=== PATIENT | female | born 1940 | race Caucasian/White ===

== ENCOUNTER → 2017-06-20 | Outpatient (CLI) | payer BC ==
[~2017-06-20] MED LIST: DIFL0.0519; ESTR0.5T3 PO; FAMO20TA11 PO; HYDR-4383 PO; LSN/10125 PO; MULT-506 PO; OFLO0.3S OP; PANT40TA PO; SIMV40TA2 PO
--- NOTE | 2017-06-20 15:51 | MAMMOGRAPHY REPORT ---
BILATERAL DIGITAL SCREENING MAMMOGRAM WITH CAD: 06/20/2017 CLINICAL HISTORY: Routine screening. Patient has no complaints. TECHNIQUE: Bilateral CC and MLO views were obtained. Current study was also evaluated with a Comput er Aided Detection (CAD) system. COMPARISON: Comparison is made to exams dated: 06/17/2016 mammogram, 06/15/2015 mammogram, 06/12/2014 m ammogram, 06/11/2013 mammogram, 05/31/2012 mammogram, and 05/31/2011 mammogram - [facility]. BREAST COMPOSITION: There are scattered areas of fibroglandular density in both breasts. FINDINGS: A linear scar marker overlies the right upper outer quadrant. No suspicious mass, architec tural distortion or cluster of suspicious microcalcifications is seen. IMPRESSION: ACR BI-RADS CATEGORY 1: NEGATIVE There is no mammographic evidence of malignancy. A 1 year screening mammogram is recommended. The pa tient will receive written notification of the results. Approximately 10% of breast cancers are not detected with mammography. A negative mammographic report should not delay biopsy if a clinically suggestive mass is present. Nanci Jerome M.D. ay/:06/20/2017 13:26:24 Cost Accounting Clerk: Petty Zapata, [facility] letter sent: Normal 1/2 BI-RADS Code: ACR BI-RADS Category 1: Negative
== END | disposition home or self-care (01) ==
LOC: C.MAMM 12:19
PROVIDERS: ATTEND Internal Medicine
DX: Z12.31 Encounter for screening mammogram for malignant neoplasm of breast (principal)

== ENCOUNTER → 2017-12-19 | Outpatient (CLI) | payer BC ==
--- NOTE | 2017-12-19 08:28 | DIAGNOSTIC IMAGING REPORT ---
CT SCAN OF THE CHEST WITHOUT IV CONTRAST CLINICAL HISTORY: Follow-up pulmonary nodule. COMPARISON STUDY: Chest CT scans dated 11/17/2016 and 06/08/2015. TECHNIQUE: CT scan of the thorax was performed from the thoracic inlet to the upper abdomen. Images are reviewed in the axial, sagittal, and coronal planes. IV contrast was not administered for this examination as per the referring clinician. A dose lowering technique was utilized adhering to the principles of ALARA. CT DOSE: 291.29 mGy.cm FINDINGS: Thyroid: Imaged portions of the thyroid gland are normal in size and attenuation. Thoracic aorta: There is atherosclerotic calcification of the thoracic aorta, which is normal in caliber and demonstrates standard 3-vessel arch anatomy. Heart: The heart is mildly enlarged and there is trace pericardial effusion. Lungs and pleural spaces: Mild apical scarring is identified. There is no airspace consolidation or pleural effusion. The trachea and central airways are clear. Scattered calcified granulomas are identified. There is an 8 mm perifissural nodule in the right upper lobe along the minor fissure seen on image #160. This is unchanged dating back to 06/08/2015 and of doubtful significance. A 4 mm left upper lobe nodule is seen on image #129. Mediastinum: There are scattered subcentimeter mediastinal lymph nodes. These are not pathologically enlarged by size criteria. Mildred: Not well assessed without IV contrast. Axillae: There is no axillary lymphadenopathy. Upper abdomen: There is a tiny hiatal hernia. Partially visualized upper abdominal viscera is otherwise within normal limits. Skeletal structures: The skeletal structures are osteopenic. No lytic or blastic bony lesions are seen. IMPRESSION: 1. There is no airspace consolidation or pleural effusion. 2. There is an 8 mm perifissural nodule in the right upper lobe. This is unchanged dating back to 2014 and of doubtful significance. 3. There is a new 4 mm left upper lobe pulmonary nodule. This is pathologically indeterminant and may be on an inflammatory basis. A 3-6 month follow-up examination is recommended for reassessment. 4. Mild cardiac enlargement. Electronically signed by: Karan Gil M.D. 12/19/2017 8:26 AM Dictated Date/Time: 12/19/2017 8:19 AM
== END | disposition home or self-care (01) ==
LOC: C.CTS 08:04
PROVIDERS: ATTEND Internal Medicine
DX: R91.1 Solitary pulmonary nodule (principal)

== ENCOUNTER → 2017-12-19 | Outpatient (CLI) | payer BC ==
[2017-12-19 11:01] LABS: BASO % 0.7 %; BASO ABS # 0.03 K/uL (0-0.2); EOS % 3.2 %; EOS ABS # 0.14 K/uL (0-0.5); HEMATOCRIT 40.1 % (37-47); HEMOGLOBIN 13.2 g/dL (12.0-16.0); LYMPH % 25.5 %; LYMPH ABS # 1.12 K/uL (1.2-3.4); MEAN CELL VOLUME 94.4 fL (80-100); MEAN CORPUSCULAR HEMOGLOBIN 31.1 pg (25-34); MEAN CORPUSCULAR HGB CONC 32.9 g/dl (32-36); MEAN PLATELET VOLUME 9.4 fL (7.4-10.4); MONO % 9.8 %; MONO ABS # 0.43 K/uL (0.11-0.59); NEUT % 60.8 %; NEUT ABS # 2.68 K/uL (1.4-6.5); PLATELET COUNT 225 K/uL (130-400); RED CELL DISTRIBUTION WIDTH CV 13.1 % (11.5-14.5); RED CELL DISTRIBUTION WIDTH SD 44.9 fL (36.4-46.3)
[2017-12-19 11:27] LABS: ALBUMIN 3.8 gm/dl (3.4-5.0); ALT/SGPT 22 U/L (12-78); AST/SGOT 19 U/L (15-37); BLOOD UREA NITROGEN 23 mg/dl (7-18); CALCIUM 9.6 mg/dl (8.5-10.1); CARBON DIOXIDE 32 mmol/L (21-32); CHOLESTEROL 189 mg/dl (0-200); CREATININE 0.82 mg/dl (0.60-1.20); GLUCOSE 97 mg/dl (70-99); POTASSIUM 3.4 mmol/L (3.5-5.1); SODIUM 138 mmol/L (136-145)
[2017-12-19 11:30] LABS: ALKALINE PHOSPHATASE 64 U/L (45-117); LDL CHOLESTEROL CALCULATED 96 mg/dl; TOTAL PROTEIN 7.3 gm/dl (6.4-8.2)
== END | disposition home or self-care (01) ==
LOC: C.LABBC 08:47
PROVIDERS: ATTEND Internal Medicine
DX: K21.0 Gastro-esophageal reflux disease with esophagitis (principal); K55.9 Vascular disorder of intestine, unspecified

== ENCOUNTER → 2018-06-20 | Outpatient (CLI) | payer BC ==
--- NOTE | 2018-06-20 12:10 | DIAGNOSTIC IMAGING REPORT ---
(CHEST) THORAX WITHOUT CT DOSE: HISTORY: Nodule FOLLOW-UP STUDY, NO NEW COMPLAINTS TECHNIQUE: Multiaxial CT images of the chest were performed without contrast. A dose lowering technique was utilized adhering to the principles of ALARA. COMPARISON: 12/19/2017 FINDINGS: Unchanging 8 mm right midlung nodule. A 4 mm left upper lobe nodule previously described has resolved. There are no new or progressive findings. Mediastinal hilar regions show no significant adenopathy. IMPRESSION: 1. Improved exam. 2. Stable 8 mm nodule right upper lobe. 3. Improved/resolved 4 mm nodule left hemithorax. 4. No further follow-up is recommended. The above report was generated using voice recognition software. It may contain grammatical, syntax or spelling errors. Electronically signed by: Zackary Narayanan M.D. 06/20/2018 12:09 PM Dictated Date/Time: 06/20/2018 12:05 PM
== END | disposition home or self-care (01) ==
LOC: C.CTS 10:36
PROVIDERS: ATTEND Internal Medicine
DX: R91.1 Solitary pulmonary nodule (principal)

== ENCOUNTER → 2018-06-21 | Outpatient (CLI) | payer BC ==
--- NOTE | 2018-06-21 16:01 | MAMMOGRAPHY REPORT ---
BILATERAL DIGITAL SCREENING MAMMOGRAM TOMOSYNTHESIS WITH CAD: 06/21/2018 TECHNIQUE: The study was acquired using full field digital technology and interpreted from soft copy. Breast tomosynthesis in addition to standard 2D mammography was performed. Current study was also ev aluated with a Computer Aided Detection (CAD) system. COMPARISON: Comparison is made to exams dated: 06/17/2016 mammogram, 06/15/2015 mammogram, 06/12/2014 m ammogram, 06/11/2013 mammogram, 05/31/2012 mammogram, and 06/20/2017 mammogram - [facility]ter. BREAST COMPOSITION: There are scattered areas of fibroglandular density in both breasts. FINDINGS: No suspicious masses, calcifications, or areas of architectural distortion are noted in either breast . There has been no significant interval change compared to prior exams. A linear scar marker denote s a scar on the right upper outer breast. IMPRESSION: ACR BI-RADS CATEGORY 2: BENIGN There is no mammographic evidence of malignancy. A 1 year screening mammogram is recommended.( 019) The patient will receive written notification of the results. Some breast cancers are not detected with mammography. A negative mammographic report should not zachery y biopsy if a clinically suggestive mass is present. Mecca Arellano M.D. ah/:06/21/2018 12:40:18 Academic Advising Director: RT Blarie(R)(M), [facility] letter sent: Normal 1/2 BI-RADS Code: ACR BI-RADS Category 2: Benign
== END | disposition home or self-care (01) ==
LOC: C.MAMM 11:51
PROVIDERS: ATTEND Internal Medicine
DX: Z12.31 Encounter for screening mammogram for malignant neoplasm of breast (principal)

== ENCOUNTER 2022-10-27 14:29 | Inpatient (IN) ==
[2022-10-27 17:31] LABS: Basophils # (auto) 0.06 K/uL (0-0.2); Basophils % (auto) 0.4 %; Eosinophils % (auto) 0.7 %; Hematocrit (blood only) 39.1 % (34.1-44.9); Hemoglobin 12.9 g/dl (12.0-16.0); Immature Granulocytes # (auto) 0.09 K/uL (0.00-0.02); Immature Granulocytes % (auto) 0.7 %; Lymphocytes % (auto) 11.2 %; Mean Corpuscular Hemoglobin 31.5 pg (25.0-34.0); Mean Corpuscular Volume 95.6 fL (80.0-100.0); Mean Platelet Volume 9.2 fL (9.4-12.3); Monocytes # (auto) 0.85 K/uL (0.24-0.82); Monocytes % (auto) 6.4 %; Neutrophils # (auto) 10.78 K/uL (1.4-6.5); Neutrophils % (auto) 80.6 %; Platelet Count 263 K/uL (130-400); RDW Coefficient of Variation 13.1 % (11.5-14.5); RDW Standard Deviation 45.9 fL (36.4-46.3); Red Blood Count 4.09 M/uL (3.93-5.22); White Blood Count 13.38 K/ul (4.8-10.8)
[2022-10-27 17:32] LABS: Albumin Globulin Ratio 1.1 (0.9-2); Albumin Level 4.1 gm/dl (3.4-5.0); BUN Creatinine Ratio 20.9 (10-20); Bilirubin,Total 0.8 mg/dl (0.2-1.0); Calcium 9.3 mg/dl (8.5-10.1); Creatinine Clr Calc Pharmacy 52.4 ml/min; Est GFR (African American) 72.9 ml/min; Est GFR (Non-African American) 62.9 ml/min; Globulin 3.7 gm/dl (2.5-4.0); Potassium 4.1 mmol/L (3.5-5.1); Total Protein 7.8 gm/dl (6.0-8.3)
[2022-10-27] MEDS ORDERED: PIPERACILLIN/TAZOBACTAM 4.5 GM/120 ML BAG IV ONE (18:59)
--- NOTE | 2022-10-27 19:02 | Emergency Department Note ---
Impression & Plan Cellulitis of gluteal region ED Provider Note NAME: BARBARA ANGELA AGE: 82 SEX: F : 1940 ARRIVES VIA: Walk-In INFORMANT: Patient, ED PROVIDER(S): Tyler Lugo DO CHIEF COMPLAINT: Gluteal abscess HPI: The patient is an 82-year-old female who presented to the emergency department with swelling and tenderness on her left gluteus. She states that this began over the last few days. She went to see her family doctor. She was started on an antibiotic. She was told to come to the ER today. The patient denies having any vomiting. She does state that she had a subjective fever. She denies having any abdominal pain. She denies having any rectal bleeding which she states she did notice some blood from the swelling area over the last few days. The patient has never had similar symptoms in the past. ROS: See above HPI for pertinent positives & negatives. A total of 10 systems reviewed and were otherwise negative. PAST MEDICAL HISTORY: See Below PAST SURGICAL HISTORY: See Below FAMILY HISTORY: See Below SOCIAL HISTORY: See Below HOME MEDICATIONS: See Below ALLERGIES: See Below VITALS: See Below PHYSICAL EXAMINATION: GENERAL: Patient is awake alert in no acute distress patient is resting comfortably and showing no signs of anxiety EYES: The conjunctivae are clear. The pupils are round and reactive. EARS, NOSE, MOUTH AND THROAT: The nose is without any evidence of any deformity. Mucous membranes are moist. Tongue is midline. NECK: The neck is nontender and supple. RESPIRATORY: Normal respiratory effort is noted there is no evidence of wheezing rhonchi or rales CARDIOVASCULAR: Regular rate and rhythm noted there no murmurs rubs or gallops normal S1 normal S2. GASTROINTESTINAL: The abdomen is soft. Abdomen is nontender. Rectal exam revealed significant swelling and induration over the left gluteus. This is very significantly tender to palpation. MUSCULOSKELETAL/EXTREMITIES: There is no evidence of gross deformity full range of motion is noted in the hips and shoulders. SKIN: There is no obvious evidence of any rash. There are no petechiae, pallor or cyanosis noted. NEUROLOGIC: Patient is awake alert and oriented x3. MEDICAL DECISION MAKING: The patient is an 82-year-old female who presented to the emergency department for an evaluation of pain on her gluteal region. The patient was diagnosed with a large induration on her gluteal cleft. The patient was started on antibiotics by her primary care physician. She returns to see her primary care physician but was referred to the emergency department for further evaluation. On my physical exam the area is very indurated I thought there could be a possibility of an abscess. Radiographic studies were obtained but there was no signs of abscess rather it appears to be a large area of cellulitis. Given the amount of pain the patient was having she was treated with IV antibiotics and IV pain medication. She was feeling somewhat improved on reevaluation but given the degree of symptoms I do feel the patient may require inpatient management. For this reason I discussed her case with the on-call [facility] hospitalist. Triage Nursing notes reviewed. Prior medical records reviewed Vital Signs: reviewed and remarkable for no significant abnormalities Differential diagnosis: Cellulitis, abscess, MRSA infection, DVT, necrotizing fasciitis, dermatitis, drug eruption, allergic reaction, as well as other pathologies. ER treatment provided: See below Diagnostics interpreted by me: ECG: none Cardiac Monitoring: An order was placed for continuous cardiac monitoring. The monitor shows a rate of 95 bpm with sinus rhythm. Laboratory studies: As stated above and show below. Imaging studies: See below Consultation(s): I discussed this case with Dr. Carney [facility]. Past Med/Surg History Medical History Cervicalgia Chronic constipation Chronic reflux esophagitis Hiatal hernia with GERD Hyperlipidemia Hypertension Insomnia Ischemic colitis no current issues Lumbar canal stenosis Mesenteric vascular insufficiency Migraine headache occasional Pain syndrome, chronic follows with pain management monthly - Dr Sánchez ([place]) Pulmonary nodule monitoring Renal artery atherosclerosis, unilateral Surgical History H/O breast surgery puncture aspiration of cyst 1958 H/O colonoscopy H/O esophagogastroduodenoscopy H/O hysterectomy with oophorectomy H/O laminectomy lumbar laminectomy History of cataract surgery Left History of tonsillectomy S/P epidural steroid injection S/P lumbar fusion x3 (extensive lumbar fusions) Family History Mother Breast cancer Father Myocardial infarction Other Hypertension No family history of adverse response to anesthesia Denies family history of Crohn's disease Colorectal cancer Ulcerative colitis Social History Smoking Status: Never smoker Second Hand Exposure: No; Hx Alcohol Use: Yes Alcohol type: wine Alcohol Intake Frequency: 4 or More x per/Week Alcohol Intake Frequency Comment: 1 glass nightly Hx Substance Use: No Preferred Language: Sami Communication Ability: Effective Visual Impairment: Limited Hearing Ability: Normal Bar Pilot Required: No Beliefs That Will Affect Care: None marital status: Current Living Situation: Spouse current occupational status: retired Feels Safe at Home: Yes Childhood Exposure to Second-Hand Smoke: Yes caffeine: Yes Dental Care, Regularly: Yes Physical Activity Frequency: Daily Physical Activity Frequency Comment: walk/cleaning Seatbelt Use: always Sunscreen Use: Yes Do you think of yourself as: straight/heterosexual Assistive Devices: Glasses Allergies Allergies Allergy/AdvReac Type Severity Reaction Status Date / Time trazodone AdvReac Intermediate Inflammation Verified 09/22/22 10:43 of the sinuses and tachycardia. Home Meds Home Medications Medication Instructions Recorded Confirmed ascorbic acid (vitamin C) 500 mg 1 g PO QAM 05/26/21 09/22/22 tablet cholecalciferol (vitamin D3) 125 125 mcg PO QAM 05/26/21 09/22/22 mcg (5,000 unit) capsule multivitamin 1 tab PO QAM 05/26/21 09/22/22 zinc 50 mg tablet 50 mg PO QAM 05/26/21 09/22/22 amlodipine 5 mg tablet 5 mg PO QAM 09/22/22 09/22/22 atorvastatin 40 mg tablet 40 mg PO QAM 09/22/22 09/22/22 hydrocodone 10 mg-acetaminophen 1 tab PO Q4H PRN chronic pain 09/22/22 09/22/22 300 mg tablet lisinopril 20 1 tab PO QAM 09/22/22 09/22/22 mg-hydrochlorothiazide 25 mg tablet pantoprazole 40 mg tablet,delayed 40 mg PO QAM 09/22/22 09/22/22 release Previous Rx's Medication Instructions Recorded [id number]-vlkpiiuutbqcq-hwewjsrn 1 tab PO .COMPLEX PRN migraine 09/08/22 50 mg-325 mg-40 mg tablet headache #14 tabs estradiol 0.5 mg tablet 0.5 mg PO QAM #90 tabs 09/19/22 sulfamethoxazole 800 1 tab PO BID 7 days #14 tabs 10/25/22 mg-trimethoprim 160 mg tablet (Bactrim DS) Results & Data (ED) Vital Signs Vital Signs - 24 hr 10/27/22 15:14 Pulse Rate 95 H Respiratory Rate 18 Blood Pressure 143/71 H Blood Pressure Mean 95 Pulse Oximetry 94 Sepsis Recent Fever Within 48 Hours No Sepsis New/Unexplained Change in Mental Status N/A Sepsis Action Taken by Nursing No Action Required Home Medications Current Medication List: was personally reviewed by me Laboratory Data Attestation: I reviewed the patient's lab results. Result diagrams: 10/27/22 16:57 10/27/22 16:57 Lab Results 10/27/22 10/27/22 Range/Units 16:57 16:57 WBC 13.38 H (4.8-10.8) K/ul RBC 4.09 (3.93-5.22) M/uL Hgb 12.9 (12.0-16.0) g/dl Hct 39.1 (34.1-44.9) % MCV 95.6 (80.0-100.0) fL MCH 31.5 (25.0-34.0) pg MCHC 33.0 (32.0-36.0) g/dL RDW Std Deviation 45.9 (36.4-46.3) fL RDW Coeff of Gilda 13.1 (11.5-14.5) % Plt Count 263 (130-400) K/uL MPV 9.2 L (9.4-12.3) fL Immature Gran % (Auto) 0.7 % Neut % (Auto) 80.6 % Lymph % (Auto) 11.2 % Stanislaus % (Auto) 6.4 % Eos % (Auto) 0.7 % Baso % (Auto) 0.4 % Neut # (Auto) 10.78 H (1.4-6.5) K/uL Lymph # (Auto) 1.50 (1.2-3.4) K/uL Stanislaus # (Auto) 0.85 H (0.24-0.82) K/uL Eos # (Auto) 0.10 (0-0.50) K/uL Baso # (Auto) 0.06 (0-0.2) K/uL Immature Gran # (Auto) 0.09 H (0.00-0.02) K/uL Sodium 135 L (136-145) mmol/L Potassium 4.1 (3.5-5.1) mmol/L Chloride 97 L (98-107) mmol/L Carbon Dioxide 30 (21-32) mmol/L Anion Gap 8 (3-11) BUN 18 (6-23) mg/dl Creatinine 0.86 (0.6-1.2) mg/dl Est Cr Clr Drug Dosing 52.4 ml/min Est GFR ( Amer) 72.9 ml/min Est GFR (Non-Af Amer) 62.9 ml/min BUN/Creatinine Ratio 20.9 H (10-20) Glucose 103 H (70-99(Fasting)) mg/dl Calcium 9.3 (8.5-10.1) mg/dl Total Bilirubin 0.8 (0.2-1.0) mg/dl AST 21 (13-39) U/L ALT 13 (7-52) U/L Alkaline Phosphatase 84 (34-104) U/L Total Protein 7.8 (6.0-8.3) gm/dl Albumin 4.1 (3.4-5.0) gm/dl Globulin 3.7 (2.5-4.0) gm/dl Albumin/Globulin Ratio 1.1 (0.9-2) Administered Medications Discontinued Medications Piperacillin Sod/Tazobactam Sod (Zosyn) 4.5 gm in 120 mls @ 240 mls/hr IV NOW ONE Stop: 10/27/22 19:28 Last Infusion: 10/27/22 21:01 Dose: 0 mls/hr Documented By: Admin: 10/27/22 20:30 Dose: 240 mls/hr Documented By: ESTELLE Ioversol (Optiray 350 100ml) 84 ml IV ONCE ONE Stop: 10/27/22 20:16 Last Admin: 10/27/22 20:17 Dose: 84 ml Documented By: FRANCHESKA Morphine Sulfate (Morphine Sulfate 4 Mg/Ml 1 Ml Carp\Vial) 4 mg IV NOW STA Stop: 10/27/22 19:24 Last Admin: 10/27/22 19:49 Dose: 4 mg Documented By: ESTELLE Ondansetron HCl (Ondansetron Inj 2 Mg/Ml 2 Ml Vial) 4 mg IV NOW STA Stop: 10/27/22 19:24 Last Admin: 10/27/22 19:49 Dose: 4 mg Documented By: KMSoniya Imaging Data Radiologist's Impression: Pelvis CT 10/27/22 18:59 CT SCAN OF THE PELVIS WITH IV CONTRAST CLINICAL HISTORY: Swelling. Abscess. Rectal pain. COMPARISON STUDY: Pelvic CT dated 11/15/2010. TECHNIQUE: Following the IV administration of 84 cc of Optiray 350, CT scan of the pelvis is performed from the pelvic inlet to the proximal femora. Images reviewed in the axial, sagittal, and coronal planes. IV contrast was administered without complication. A dose lowering technique was utilized adhering to the principles of ALARA. CT DOSE: 1024.19 mGy.cm FINDINGS: The bladder is mildly distended, but otherwise normal in appearance. The uterus is surgically absent. No adnexal lesion is seen. There is no pelvic sidewall or inguinal lymphadenopathy. The visualized portions of small bowel and colon show no evidence of obstruction. A normal appendix is seen in the right lower quadrant. There is inflammation and dermal thickening identified in the right buttock along the gluteal crease. This approaches the perianal soft tissues at the 7:00 position. No organized fluid collection is seen to indicate perianal abscess. No fistulous tract is clearly seen. Inflammation is located below the levator musculature. No perineal soft tissue gas is seen. The skeletal structures are osteopenic. The bony pelvis appears intact. No lytic or blastic lesion is seen. Postoperative change is noted at the lumbosacral junction. A bone graft donor site is seen in the medial left ilium. The regional musculature is normal and symmetric. The iliac vessels are patent. IMPRESSION: 1. There is cellulitis of the right buttock along the gluteal crease as detailed above. 2. No organized fluid collection is seen to indicate perianal abscess. No fistulous tract is clearly identified. 3. The pelvic viscera is normal as visualized noting prior hysterectomy. ACT 112: Negative or not required by law. Dictated: 10/27/2022 8:29 PM Transcribed: 10/27/2022 8:59 PM Venus [id number] [email or web address] Electronically signed by: Karan Gil M.D. 10/27/2022 9:29 PM Discharge Plan Visit Data Chief Complaint: Rectal Pain Stated Complaint: RECTAL PAIN ED Provider: Tyler Lugo Discharge Problem: Cellulitis of gluteal region Patient Disposition: Being Evaluated by Hospitalist Forms Stand Alone Forms: [facility] Prescriptions Prescriptions: No Action bzvxzqifzb-zedxxmnlfobjl-xygd 50-325-40 mg tablet 1 tab PO .COMPLEX PRN (Reason: migraine headache) Qty: 14 0RF Rx Instructions: 1 tab PO every 8 hr . not to exceed 4 per week PRN; estradiol 0.5 mg tablet 0.5 mg PO QAM Qty: 90 3RF multivitamin Tablet 1 tab PO QAM ascorbic acid (vitamin C) 500 mg tablet 1 g PO QAM zinc 50 mg tablet 50 mg PO QAM cholecalciferol (vitamin D3) 125 mcg (5,000 unit) capsule 125 mcg PO QAM sulfamethoxazole-trimethoprim [Bactrim DS] 800-160 mg tablet 1 tab PO BID 7 Days Qty: 14 0RF hydrocodone-acetaminophen 10-300 mg Tablet 1 tab PO Q4H PRN (Reason: chronic pain) atorvastatin 40 mg tablet 40 mg PO QAM amlodipine 5 mg tablet 5 mg PO QAM pantoprazole 40 mg tablet,delayed release (DR/EC) 40 mg PO QAM lisinopril-hydrochlorothiazide 20-25 mg tablet 1 tab PO QAM Rx Instructions: TAKE 1 TABLET BY MOUTH EVERY DAY Referrals Referrals: Donaldo Barajas MD [Primary Care Provider] -
[2022-10-27] MEDS ORDERED: ONDANSETRON INJ 2 MG/ML 2 ML VIAL IV STA (19:23)
[2022-10-27] MEDS ORDERED: MoRPHine SULFATE 4 MG/ML 1 ML CARP\\VIAL IV STA (19:23)
[2022-10-27] MEDS ORDERED: OPTIRAY 350 100ml IV ONE (20:15)
--- NOTE | 2022-10-27 21:30 | CT Scan Report ---
CT SCAN OF THE PELVIS WITH IV CONTRAST CLINICAL HISTORY: Swelling. Abscess. Rectal pain. COMPARISON STUDY: Pelvic CT dated 11/15/2010. TECHNIQUE: Following the IV administration of 84 cc of Optiray 350, CT scan of the pelvis is performe d from the pelvic inlet to the proximal femora. Images reviewed in the axial, sagittal, and coronal p lanes. IV contrast was administered without complication. A dose lowering technique was utilized adhe ring to the principles of ALARA. CT DOSE: 1024.19 mGy.cm FINDINGS: The bladder is mildly distended, but otherwise normal in appearance. The uterus is surgically absent. No adnexal lesion is seen. There is no pelvic sidewall or inguinal lymphadenopathy. The visualized p ortions of small bowel and colon show no evidence of obstruction. A normal appendix is seen in the ri t lower quadrant. There is inflammation and dermal thickening identified in the right buttock along the gluteal crease. This approaches the perianal soft tissues at the 7:00 position. No organized flu id collection is seen to indicate perianal abscess. No fistulous tract is clearly seen. Inflammation is located below the levator musculature. No perineal soft tissue gas is seen. The skeletal structures are osteopenic. The bony pelvis appears intact. No lytic or blastic lesion is seen. Postoperative change is noted at the lumbosacral junction. A bone graft donor site is seen in the medial left ilium. The regional musculature is normal and symmetric. The iliac vessels are patent . IMPRESSION: 1. There is cellulitis of the right buttock along the gluteal crease as detailed above. 2. No organized fluid collection is seen to indicate perianal abscess. No fistulous tract is clearly identified. 3. The pelvic viscera is normal as visualized noting prior hysterectomy. ACT 112: Negative or not required by law. Dictated: 10/27/2022 8:29 PM Transcribed: 10/27/2022 8:59 PM Venus [id number] [email or web address] Electronically signed by: Karan Gil M.D. 10/27/2022 9:29 PM
[2022-10-27 22:42] LABS: Appearance Urine Clear (Clear); Bilirubin Urine Negative (Negative); Blood Urine Negative (Negative); Color Urine Yellow; Glucose Urine UA Negative (Negative); Ketones Urine Negative (Negative); Leukocyte Esterase Urine Negative (Negative); Nitrite Urine Negative (Negative); Protein Urine Negative (Negative); Specific Gravity Urine 1.035 (1.000-1.030); Urobilinogen Urine Negative (Negative); pH Urine 7.5 (4.5-7.5)
--- NOTE | 2022-10-27 23:17 | History & Physical Report ---
Date of Service October 27, 2022 Assessment & Plan (1) Cellulitis of gluteal region: Plan: Patient is an 82-year-old female with a past medical history of chronic back pain, hiatal hernia with GERD, chronic pain syndrome, insomnia, hypertension, and hyperlipidemia who presents to the hospital for evaluation of right gluteal infection. There is no notable abscess per my evaluation and imaging. She has been started on IV antibiotics and received a one-time dose of Zosyn and has now been started on Unasyn and daptomycin. Patient is hemodynamically stable and comfortable. -Admit to [facility] -Infection seems to have gotten worse on Bactrim -Started Unasyn and daptomycin for broad-spectrum coverage given area of infection -White count currently at 13.38 -Lactated Ringer's at 80 cc/h -Patient is hemodynamically stable -Daily CBC and BMP -Given that there is no notable abscess, no surgical consult at this time -No SIRS criteria, no blood cultures needed at this time -If good resolution/improvement tomorrow, consider de-escalating antibiotics (2) Back pain: Plan: -Chronic issue, typically on oxycodone through pain management in outpatient setting -Hold oxycodone while in hospital, pain scale with morphine 2 mg for pain 5 through 7, 4 mg for pain 8 through 10. (3) Hiatal hernia with GERD: Plan: -continue Protonix (4) Pain syndrome, chronic: Plan: -See back pain above (5) Hypertension: Plan: -Continue amlodipine, lisinopril, hydrochlorothiazide (6) Hyperlipidemia: Plan: -Statin on hold while being given Unasyn and daptomycin Disposition: Admit to [facility] DVT prophylaxis: Lovenox Diet: Heart healthy CODE STATUS: Full code History of Present Illness Chief Complaint: Gluteal infection Primary Care Provider: Donaldo Barajas MD Patient is an 82-year-old female with a past medical history of chronic back pain, hiatal hernia with GERD, chronic pain syndrome, insomnia, hypertension, and hyperlipidemia who presents to the hospital for evaluation of right gluteal infection. She reports that she has swelling in her right glutes that started a few days ago for which she saw her family doctor. She was initially started on a course of Bactrim. It seems the swelling in tenderness progressively gotten worse over the past couple of days and today she was instructed to go to the emergency department by her primary care provider. Patient reports exuberant amounts of pain which prompted her to discuss her care further with her primary care provider. Of note she does report that when she initially saw her primary care provider there was a mobile, painful mass but she did have blood over the swollen area for the past couple of days. Patient otherwise has no systemic symptoms. No fever, chills, chest pain, nausea, vomiting, shortness of breath or chest pain. No other complaints at this time. ED course: Patient was brought to the emergency department for evaluation of her infection. While she was here she was seen by one of our ED providers who ordered lab work and imaging. Lab work was positive for a white count of 13.38 but otherwise lab results were within normal limits. A CT scan of her pelvis revealed diffuse edema and inflammation without any localized collection of fluid indicating an abscess. For the extent of the infection, the hospital service was consulted for further treatment and evaluation. Allergies Allergy/AdvReac Type Severity Reaction Status Date / Time trazodone AdvReac Intermediate Inflammation Verified 09/22/22 10:43 of the sinuses and tachycardia. Home Medications Medication Instructions Recorded Confirmed Type ascorbic acid (vitamin C) 500 mg 1 g PO QAM 05/26/21 09/22/22 History tablet cholecalciferol (vitamin D3) 125 125 mcg PO QAM 05/26/21 09/22/22 History mcg (5,000 unit) capsule multivitamin 1 tab PO QAM 05/26/21 09/22/22 History zinc 50 mg tablet 50 mg PO QAM 05/26/21 09/22/22 History rbeotwvcnb-tfdggmgleoltu-rrebcwgd 1 tab PO .COMPLEX PRN migraine 09/08/22 09/22/22 Rx 50 mg-325 mg-40 mg tablet headache #14 tabs estradiol 0.5 mg tablet 0.5 mg PO QAM #90 tabs 09/19/22 09/22/22 Rx amlodipine 5 mg tablet 5 mg PO QAM 09/22/22 09/22/22 History atorvastatin 40 mg tablet 40 mg PO QAM 09/22/22 09/22/22 History hydrocodone 10 mg-acetaminophen 1 tab PO Q4H PRN chronic pain 09/22/22 09/22/22 History 300 mg tablet lisinopril 20 1 tab PO QAM 09/22/22 09/22/22 History mg-hydrochlorothiazide 25 mg tablet pantoprazole 40 mg tablet,delayed 40 mg PO QAM 09/22/22 09/22/22 History release sulfamethoxazole 800 1 tab PO BID 7 days #14 tabs 10/25/22 10/25/22 Rx mg-trimethoprim 160 mg tablet (Bactrim DS) Past Med/Surg History Medical History Cervicalgia Chronic constipation Chronic reflux esophagitis Hiatal hernia with GERD Hyperlipidemia Hypertension Insomnia Ischemic colitis no current issues Lumbar canal stenosis Mesenteric vascular insufficiency Migraine headache occasional Pain syndrome, chronic follows with pain management monthly - Dr Sánchez ([place]) Pulmonary nodule monitoring Renal artery atherosclerosis, unilateral Surgical History H/O breast surgery puncture aspiration of cyst 1958 H/O colonoscopy H/O esophagogastroduodenoscopy H/O hysterectomy with oophorectomy H/O laminectomy lumbar laminectomy History of cataract surgery Left History of tonsillectomy S/P epidural steroid injection S/P lumbar fusion x3 (extensive lumbar fusions) Family History Mother Breast cancer Father Myocardial infarction Other Hypertension No family history of adverse response to anesthesia Denies family history of Crohn's disease Colorectal cancer Ulcerative colitis Social History Smoking Status: Never smoker Second Hand Exposure: No; Hx Alcohol Use: Yes Alcohol type: wine Alcohol Intake Frequency: 4 or More x per/Week Alcohol Intake Frequency Comment: 1 glass nightly Hx Substance Use: No Preferred Language: Mosotho Communication Ability: Effective Visual Impairment: Limited Hearing Ability: Normal Anime Designer Required: No Beliefs That Will Affect Care: None marital status: Current Living Situation: Spouse current occupational status: retired Feels Safe at Home: Yes Childhood Exposure to Second-Hand Smoke: Yes caffeine: Yes Dental Care, Regularly: Yes Physical Activity Frequency: Daily Physical Activity Frequency Comment: walk/cleaning Seatbelt Use: always Sunscreen Use: Yes Do you think of yourself as: straight/heterosexual Assistive Devices: Glasses Review of Systems Review of Systems: All systems reviewed & are unremarkable except as noted in HPI & below Physical Exam Constitutional: WD/WN, vitals as above Eyes: + anicteric sclerae Neck: trachea midline, no thyromegaly Respiratory: normal respiratory effort, lungs clear to auscultation Cardiovascular: RRR, no murmur, no edema Gastrointestinal (Abdomen): normal bowel sounds, soft, nontender, no hepatosplenomegaly Musculoskeletal: Head/Neck/Chest: normocephalic and head atraumatic Skin: There is extensive erythema and swelling of her entire right gluteus davonte area. There is no focal pore or fluid collection that would be consistent with an abscess. No drainage. Neurologic: moves all extremities Psychiatric: A+Ox3, euthymic affect Lymphatic: no cervical lymphadenopathy Results & Data Results & Data ([facility]) Vital Signs (Past 12 Hours) Vital Signs Pulse Pulse Resp BP BP Pulse Ox O2 Del Method 10/27/22 22:43 83 16 138/66 99 Room Air 10/27/22 20:30 74 16 97 Room Air 10/27/22 15:14 95 H 18 143/71 H 94 Code Status & VTE Plan VTE Prophylaxis Plan VTE Prophylaxis will be ordered: Yes Supervising Physician Co-Signing Physician Notes Patient seen and examined, chart reviewed, case discussed with Dr. Zaragoza and I agree with the assessment and plan as above. In brief, patient is a pleasant 82yo female with history of HTN, HLP and GERD presenting with right gluteal infection. Her symptoms began 4 days ago as a tender area on her right gluteal region. She reports the area was 3 inches in size at that point. She was seen by her PCP and was started on Bactrim two days ago. She has had progression of the pain and induration over the last two days. She is very uncomfortable. Denies fever, chills, nausea, malaise. On exam she is afebrile, hypertensive, otherwise HD stable. NAD Skin - area of redness and induration noted on right gluteal area, tender to palpation. No crepitus, bullae, lymphangitis, no drainage or abscess appreciated. HEENT - MMM, Neck supple, no JVD Heart - +S1/S2, regular, no m/r/g Lungs - CTA Abd - soft, NT/ND Ext - warm, well perfused Labs and images reviewed. WBC=13.38 Localized inflammatory findings noted on CT of the pelvis Assessment/Plan -Montior area of infection -Antibiotic treatment with Unasyn and Daptomycin for now -Gentle hydration -Pain control -Remainder as above (1) Hypertension Hypertension type: essential hypertension Qualified Code(s): I10 - Essential (primary) hypertension
--- NOTE | 2022-10-28 00:42 | Billing Data ---
Date of Service October 27, 2022 Coding Level of Care Code INT OBSERVATION CARE 50M LVL 2
[2022-10-28] MEDS ORDERED: MoRPHine SULFATE 2 MG/ML CARP IV PRN (01:55)
[2022-10-28] MEDS ORDERED: POLYETHYLENE (MIRALAX) 17 GM PACK PO PRN (01:55)
[2022-10-28] MEDS ORDERED: ONDANSETRON INJ 2 MG/ML 2 ML VIAL IV PRN (01:55)
[2022-10-28] MEDS: LACTATED RINGER'S 1,000 ML IV SCH ×2 (02:16→14:19)
[2022-10-28] MEDS: MoRPHine SULFATE 4 MG/ML 1 ML CARP\\VIAL IV PRN ×3 (02:16→23:09)
[2022-10-28] MEDS: DAPTOmycin 225 MG in SYRINGE 0 ML IV SCH (02:56)
[2022-10-28] MEDS: AMPICILLIN/SULBACTAM SOD 1,500 MG in 0.9 % SODIUM CHLORIDE 100 ML IV SCH ×4 (04:28→21:00)
[2022-10-28] MEDS: ENOXAPARIN INJ 30 MG/0.3 ML SYR SQ SCH (06:18)
[2022-10-28] MEDS: ACETAMINOPHEN 325 MG TAB PO PRN (08:17)
[2022-10-28] MEDS: ASCORBIC ACID 500 MG TAB PO SCH (08:21)
[2022-10-28] MEDS: LISINOPRIL/HCTZ 20/25MG 1 TAB PO SCH (08:21)
[2022-10-28] MEDS: amLODIPine BESYLATE 5 MG TAB PO SCH (08:21)
[2022-10-28] MEDS: CHOLECALCIFEROL 5,000 UNITS 125 MCG TAB PO SCH (08:21)
[2022-10-28] MEDS: PANTOprazole 40 MG TAB PO SCH (08:21)
[2022-10-28 09:06] LABS: Basophils # (auto) 0.04 K/uL (0-0.2); Basophils % (auto) 0.3 %; Eosinophils # (auto) 0.24 K/uL (0-0.50); Eosinophils % (auto) 2.1 %; Hematocrit (blood only) 40.3 % (34.1-44.9); Hemoglobin 13.4 g/dl (12.0-16.0); Immature Granulocytes # (auto) 0.08 K/uL (0.00-0.02); Immature Granulocytes % (auto) 0.7 %; Lymphocytes # (auto) 1.23 K/uL (1.2-3.4); Lymphocytes % (auto) 10.5 %; Mean Corpuscular Hemoglobin 31.7 pg (25.0-34.0); Mean Corpuscular Hgb Conc 33.3 g/dL (32.0-36.0); Mean Corpuscular Volume 95.3 fL (80.0-100.0); Mean Platelet Volume 9.1 fL (9.4-12.3); Monocytes # (auto) 1.06 K/uL (0.24-0.82); Monocytes % (auto) 9.1 %; Neutrophils # (auto) 9.04 K/uL (1.4-6.5); Neutrophils % (auto) 77.3 %; Platelet Count 273 K/uL (130-400); RDW Standard Deviation 45.7 fL (36.4-46.3); Red Blood Count 4.23 M/uL (3.93-5.22); White Blood Count 11.69 K/ul (4.8-10.8)
[2022-10-28 09:33] LABS: BUN Creatinine Ratio 22.2 (10-20); Calcium 9.3 mg/dl (8.5-10.1); Est GFR (African American) 78.4 ml/min; Est GFR (Non-African American) 67.6 ml/min; Potassium 3.8 mmol/L (3.5-5.1)
--- NOTE | 2022-10-28 21:32 | Hospitalist Progress Note ---
Date of Service October 28, 2022 Assessment & Plan (1) Cellulitis of gluteal region: Plan: Patient is an 82-year-old female with a past medical history of chronic back pain, hiatal hernia with GERD, chronic pain syndrome, insomnia, hypertension, and hyperlipidemia who presents to the hospital for evaluation of right gluteal infection. There is no notable abscess per my evaluation and imaging. She has been started on IV antibiotics and received a one-time dose of Zosyn and has now been started on Unasyn and daptomycin. Patient is hemodynamically stable and comfortable. -Admit to [facility] -Infection seems to have gotten worse on Bactrim -Started Unasyn and daptomycin for broad-spectrum coverage given area of infection -White count currently at 13.38 -Lactated Ringer's at 80 cc/h -Patient is hemodynamically stable -Daily CBC and BMP -Given that there is no notable abscess, no surgical consult at this time -No SIRS criteria, no blood cultures needed at this time -If good resolution/improvement tomorrow, consider de-escalating antibiotics. Mild resolution of erythema, will place on warm compresses. Area of induration may evolve into an abscess, will consider discussion with gen surgery. (2) Back pain: Plan: -Chronic issue, typically on oxycodone through pain management in outpatient setting -Hold oxycodone while in hospital, pain scale with morphine 2 mg for pain 5 through 7, 4 mg for pain 8 through 10. (3) Hiatal hernia with GERD: Plan: -continue Protonix (4) Pain syndrome, chronic: Plan: -See back pain above (5) Hypertension: Plan: -Continue amlodipine, lisinopril, hydrochlorothiazide (6) Hyperlipidemia: Plan: -Statin on hold while being given Unasyn and daptomycin Disposition: Admit to [facility] DVT prophylaxis: Lovenox Diet: Heart healthy CODE STATUS: Full code Admission and Anticipated Discharge Date Admission Date: October 27, 2022 Subjective Patient reports that she continues to have pain in that region. Review of Systems Review of Systems: All systems reviewed & are unremarkable except as noted in HPI & below Physical Exam Physical Exam: Constitutional: WD/WN, vitals as above Eyes: + anicteric sclerae Neck: trachea midline, no thyromegaly Respiratory: normal respiratory effort, lungs clear to auscultation Cardiovascular: RRR, no murmur, no edema Gastrointestinal (Abdomen): normal bowel sounds, soft, nontender, no hepatosplenomegaly Musculoskeletal: Head/Neck/Chest: normocephalic and head atraumatic Skin: decreased erythema, however, there is an area of induration on the right gluteal region. There is no focal pore or fluid collection that would be consistent with an abscess. No drainage. Neurologic: moves all extremities Psychiatric: A+Ox3, euthymic affect Lymphatic: no cervical lymphadenopathy Results & Data Results & Data ([facility]) Vital Signs (Past 12 Hours) Vital Signs Temp Pulse Resp BP Pulse Ox O2 Del Method 10/28/22 15:58 36.8 C 85 16 127/63 95 Room Air PG Care Time/CCT Total # of Minutes Spent Total Time Spent with Patient: Total time spent is greater than 50% in coordination of care (as documented) at patient's floor/unit and/or counseling patient: Coding Level of Care Code 54289 Subseq Hosp Care Lvl 2 Diagnoses Cellulitis of gluteal region L03.317 Back pain M54.9 Hiatal hernia with GERD K21.9; K44.9 Pain syndrome, chronic G89.4 Hypertension I10 Hypertension type: essential hypertension Hyperlipidemia E78.5 Time Spent (min) 25 (1) Hypertension Hypertension type: essential hypertension Qualified Code(s): I10 - Essential (primary) hypertension
[2022-10-29] MEDS: DAPTOmycin 225 MG in SYRINGE 0 ML IV SCH (01:50)
[2022-10-29] MEDS: LACTATED RINGER'S 1,000 ML IV SCH ×2 (01:50→14:12)
[2022-10-29] MEDS: AMPICILLIN/SULBACTAM SOD 1,500 MG in 0.9 % SODIUM CHLORIDE 100 ML IV SCH ×4 (03:39→21:06)
[2022-10-29] MEDS: ACETAMINOPHEN 325 MG TAB PO PRN ×2 (03:45→09:02)
[2022-10-29] MEDS: ENOXAPARIN INJ 30 MG/0.3 ML SYR SQ SCH (05:27)
[2022-10-29] MEDS: MoRPHine SULFATE 4 MG/ML 1 ML CARP\\VIAL IV PRN ×3 (05:28→20:05)
[2022-10-29] MEDS: amLODIPine BESYLATE 5 MG TAB PO SCH (08:56)
[2022-10-29] MEDS: ASCORBIC ACID 500 MG TAB PO SCH (08:56)
[2022-10-29] MEDS: PANTOprazole 40 MG TAB PO SCH (08:56)
[2022-10-29] MEDS: CHOLECALCIFEROL 5,000 UNITS 125 MCG TAB PO SCH (08:56)
[2022-10-29] MEDS: LISINOPRIL/HCTZ 20/25MG 1 TAB PO SCH (08:56)
[2022-10-29] MEDS ORDERED: INFLUENZA VACCINE HIGH DOSE PF 65+ 0.7 ML SYR IM ONE (09:00)
[2022-10-29] MEDS ORDERED: PNEUMOCOCCAL POLYSACCHARIDES 25 MCG/0.5 ML VIAL/SYR IM ONE (09:00)
[2022-10-29 09:17] LABS: Basophils # (auto) 0.04 K/uL (0-0.2); Basophils % (auto) 0.5 %; Eosinophils # (auto) 0.38 K/uL (0-0.50); Eosinophils % (auto) 4.4 %; Hematocrit (blood only) 37.6 % (34.1-44.9); Hemoglobin 12.6 g/dl (12.0-16.0); Immature Granulocytes # (auto) 0.03 K/uL (0.00-0.02); Immature Granulocytes % (auto) 0.3 %; Lymphocytes # (auto) 1.24 K/uL (1.2-3.4); Lymphocytes % (auto) 14.4 %; Mean Corpuscular Hemoglobin 31.3 pg (25.0-34.0); Mean Corpuscular Hgb Conc 33.5 g/dL (32.0-36.0); Mean Corpuscular Volume 93.5 fL (80.0-100.0); Monocytes # (auto) 0.72 K/uL (0.24-0.82); Monocytes % (auto) 8.3 %; Neutrophils # (auto) 6.22 K/uL (1.4-6.5); Neutrophils % (auto) 72.1 %; Platelet Count 275 K/uL (130-400); RDW Coefficient of Variation 12.6 % (11.5-14.5); RDW Standard Deviation 43.7 fL (36.4-46.3); Red Blood Count 4.02 M/uL (3.93-5.22); White Blood Count 8.63 K/ul (4.8-10.8)
[2022-10-29 09:35] LABS: BUN Creatinine Ratio 29.2 (10-20); Calcium 8.8 mg/dl (8.5-10.1); Creatinine Clr Calc Pharmacy 68.3 ml/min; Est GFR (African American) 95.8 ml/min; Est GFR (Non-African American) 82.7 ml/min; Potassium 3.9 mmol/L (3.5-5.1)
[2022-10-29] MEDS: oxyCODONE HCL IR 5 MG TAB (IMMEDIATE RELEASE) PO SCH ×2 (11:26→21:06)
--- NOTE | 2022-10-29 23:25 | Hospitalist Progress Note ---
Date of Service October 29, 2022 Assessment & Plan (1) Cellulitis of gluteal region: Plan: Patient is an 82-year-old female with a past medical history of chronic back pain, hiatal hernia with GERD, chronic pain syndrome, insomnia, hypertension, and hyperlipidemia who presents to the hospital for evaluation of right gluteal infection. There is no notable abscess per my evaluation and imaging. She has been started on IV antibiotics and received a one-time dose of Zosyn and has now been started on Unasyn and daptomycin. Patient is hemodynamically stable and comfortable. -Admit to [facility] -Infection seems to have gotten worse on Bactrim -Started Unasyn and daptomycin for broad-spectrum coverage given area of infection -White count currently at 13.38 -Lactated Ringer's at 80 cc/h -Patient is hemodynamically stable -Daily CBC and BMP -Given that there is no notable abscess, no surgical consult at this time -No SIRS criteria, no blood cultures needed at this time -If good resolution/improvement tomorrow, consider de-escalating antibiotics. Mild resolution of erythema, will place on warm compresses. Area of induration may evolve into an abscess, will consider discussion with gen surgery. For now will continue antibiotics as above as this appears to be helping. Area remains indurated on 10/29 (2) Back pain: Plan: -Chronic issue, typically on oxycodone through pain management in outpatient setting -Hold oxycodone while in hospital, pain scale with morphine 2 mg for pain 5 through 7, 4 mg for pain 8 through 10. (3) Hiatal hernia with GERD: Plan: -continue Protonix (4) Pain syndrome, chronic: Plan: -See back pain above (5) Hypertension: Plan: -Continue amlodipine, lisinopril, hydrochlorothiazide (6) Hyperlipidemia: Plan: -Statin on hold while being given Unasyn and daptomycin Disposition: Admit to [facility] DVT prophylaxis: Lovenox Diet: Heart healthy CODE STATUS: Full code Admission and Anticipated Discharge Date Admission Date: October 29, 2022 Subjective 82 yo female reports feeling about the same. Her gluteal region is less warm but continues to be very tender when she wipes Review of Systems Review of Systems: All systems reviewed & are unremarkable except as noted in HPI & below Physical Exam Physical Exam: Constitutional: WD/WN, vitals as above Eyes: + anicteric sclerae Neck: trachea midline, no thyromegaly Respiratory: normal respiratory effort, lungs clear to auscultation Cardiovascular: RRR, no murmur, no edema Gastrointestinal (Abdomen): normal bowel sounds, soft, nontender, no hepatosplenomegaly Musculoskeletal: Head/Neck/Chest: normocephalic and head atraumatic Skin: decreased erythema, however, there is an area of induration on the right gluteal region. There is no focal pore or fluid collection that would be consistent with an abscess. No drainage. Neurologic: moves all extremities Psychiatric: A+Ox3, euthymic affect Lymphatic: no cervical lymphadenopathy Results & Data Results & Data ([facility]) Vital Signs (Past 12 Hours) Vital Signs Temp Pulse Resp BP Pulse Ox O2 Del Method 10/29/22 22:08 37.2 C 91 H 18 167/70 H 96 Room Air 10/29/22 16:00 36.5 C 76 18 146/71 H 93 Room Air PG Care Time/CCT Total # of Minutes Spent Total Time Spent with Patient: Total time spent is greater than 50% in coordination of care (as documented) at patient's floor/unit and/or counseling patient: Coding Level of Care Code 21613 Subseq Hosp Care Lvl 2 Diagnoses Cellulitis of gluteal region L03.317 Back pain M54.9 Hiatal hernia with GERD K21.9; K44.9 Pain syndrome, chronic G89.4 Hypertension I10 Hypertension type: essential hypertension Hyperlipidemia E78.5 (1) Hypertension Hypertension type: essential hypertension Qualified Code(s): I10 - Essential (primary) hypertension
[2022-10-30] MEDS: MoRPHine SULFATE 4 MG/ML 1 ML CARP\\VIAL IV PRN ×5 (00:16→21:23)
[2022-10-30] MEDS: DAPTOmycin 225 MG in SYRINGE 0 ML IV SCH (01:39)
[2022-10-30] MEDS: LACTATED RINGER'S 1,000 ML IV SCH ×2 (02:06→15:59)
[2022-10-30] MEDS: AMPICILLIN/SULBACTAM SOD 1,500 MG in 0.9 % SODIUM CHLORIDE 100 ML IV SCH ×4 (04:08→21:13)
[2022-10-30] MEDS: ENOXAPARIN INJ 30 MG/0.3 ML SYR SQ SCH (05:46)
[2022-10-30] MEDS: CHOLECALCIFEROL 5,000 UNITS 125 MCG TAB PO SCH (08:26)
[2022-10-30] MEDS: amLODIPine BESYLATE 5 MG TAB PO SCH (08:26)
[2022-10-30] MEDS: LISINOPRIL/HCTZ 20/25MG 1 TAB PO SCH (08:26)
[2022-10-30] MEDS: oxyCODONE HCL IR 5 MG TAB (IMMEDIATE RELEASE) PO SCH ×2 (08:26→21:12)
[2022-10-30] MEDS: ASCORBIC ACID 500 MG TAB PO SCH (08:26)
[2022-10-30] MEDS: PANTOprazole 40 MG TAB PO SCH (08:26)
[2022-10-30 08:54] LABS: Hematocrit (blood only) 37.8 % (34.1-44.9); Hemoglobin 12.9 g/dl (12.0-16.0); Mean Corpuscular Hemoglobin 31.4 pg (25.0-34.0); Mean Corpuscular Hgb Conc 34.1 g/dL (32.0-36.0); Mean Platelet Volume 8.9 fL (9.4-12.3); Platelet Count 291 K/uL (130-400); RDW Coefficient of Variation 12.4 % (11.5-14.5); RDW Standard Deviation 41.8 fL (36.4-46.3); Red Blood Count 4.11 M/uL (3.93-5.22); White Blood Count 8.82 K/ul (4.8-10.8)
[2022-10-30 09:27] LABS: BUN Creatinine Ratio 25.4 (10-20); Calcium 8.7 mg/dl (8.5-10.1); Creatinine Clr Calc Pharmacy 73.8 ml/min; Est GFR (African American) 98.9 ml/min; Est GFR (Non-African American) 85.4 ml/min; Potassium 3.6 mmol/L (3.5-5.1)
--- NOTE | 2022-10-30 16:11 | Surgery Consultation ---
Date of Consultation October 30, 2022 Assessment & Plan (1) Cellulitis of gluteal region: CT scan without obviuos fluid but on exam may be abscess not responding to IV abx EUA with possible drainage in AM Present on Admission?: Yes History of Present Illness Attending Physician: Jake Snider History of Present Illness This is an 82-year-old female with a past medical history of chronic back pain, hiatal hernia with GERD, chronic pain syndrome, insomnia, hypertension, and hyperlipidemia who presents to the hospital for evaluation of right gluteal infection. An initial US did not see a fluid collection, she has been managed with IV abx. The pain is worse but no drainage.Patient is hemodynamically stable and comfortable. She has recently eaten lunch. Allergies Allergy/AdvReac Type Severity Reaction Status Date / Time trazodone AdvReac Intermediate Inflammation Verified 09/22/22 10:43 of the sinuses and tachycardia. Home Medications Medication Instructions Recorded Confirmed Type ascorbic acid (vitamin C) 500 mg 1 g PO QAM 05/26/21 10/28/22 History tablet cholecalciferol (vitamin D3) 125 125 mcg PO QAM 05/26/21 10/28/22 History mcg (5,000 unit) capsule multivitamin 1 tab PO QAM 05/26/21 10/28/22 History zinc 50 mg tablet 50 mg PO QAM 05/26/21 10/28/22 History bpanektbez-txnnejuaiwwaf-plguyjzo 1 tab PO .COMPLEX PRN migraine 09/08/22 10/28/22 Rx 50 mg-325 mg-40 mg tablet headache #14 tabs estradiol 0.5 mg tablet 0.5 mg PO QAM #90 tabs 09/19/22 10/28/22 Rx amlodipine 5 mg tablet 5 mg PO QAM 09/22/22 10/28/22 History atorvastatin 40 mg tablet 40 mg PO QAM 09/22/22 10/28/22 History hydrocodone 10 mg-acetaminophen 1 tab PO Q4H PRN chronic pain 09/22/22 10/28/22 History 300 mg tablet lisinopril 20 1 tab PO QAM 09/22/22 10/28/22 History mg-hydrochlorothiazide 25 mg tablet pantoprazole 40 mg tablet,delayed 40 mg PO QAM 09/22/22 10/28/22 History release sulfamethoxazole 800 1 tab PO BID 7 days #14 tabs 10/25/22 10/28/22 Rx mg-trimethoprim 160 mg tablet (Bactrim DS) Patient History Medical History Cervicalgia Chronic constipation Chronic reflux esophagitis Hiatal hernia with GERD Hyperlipidemia Hypertension Insomnia Ischemic colitis no current issues Lumbar canal stenosis Mesenteric vascular insufficiency Migraine headache occasional Pain syndrome, chronic follows with pain management monthly - Dr Sánchez ([place]) Pulmonary nodule monitoring Renal artery atherosclerosis, unilateral Surgical History H/O breast surgery puncture aspiration of cyst 1958 H/O colonoscopy H/O esophagogastroduodenoscopy H/O hysterectomy with oophorectomy H/O laminectomy lumbar laminectomy History of cataract surgery Left History of tonsillectomy S/P epidural steroid injection S/P lumbar fusion x3 (extensive lumbar fusions) Family History Mother Breast cancer Father Myocardial infarction Other Hypertension No family history of adverse response to anesthesia Denies family history of Crohn's disease Colorectal cancer Ulcerative colitis Social History Smoking Status: Never smoker Second Hand Exposure: No; Hx Alcohol Use: Yes Alcohol type: wine Alcohol Intake Frequency: 4 or More x per/Week Alcohol Intake Frequency Comment: 1 glass nightly Hx Substance Use: No Preferred Language: Greenlandic Communication Ability: Effective Visual Impairment: Limited Hearing Ability: Normal Ammonia Refrigeration Worker Required: No Beliefs That Will Affect Care: None marital status: Current Living Situation: Spouse current occupational status: retired Other Information That Helps Us Care for You: No Feels Safe at Home: Yes Safety Concerns: Feels Safe At This Time Childhood Exposure to Second-Hand Smoke: Yes caffeine: Yes Dental Care, Regularly: Yes Physical Activity Frequency: Daily Physical Activity Frequency Comment: walk/cleaning Seatbelt Use: always Sunscreen Use: Yes Do you think of yourself as: straight/heterosexual Assistive Devices: None Review of Systems Constitutional: + fever; no chills Eyes: no problem reported Ear, Nose, Mouth, Throat: no problem reported Respiratory: no cough and no dyspnea Cardiovascular: no chest pain Gastrointestinal: + change in bowel habits; no abdominal pain, no nausea and no vomiting Genitourinary: no dysuria Musculoskeletal: no back pain Integumentary: + rash and + change in skin color (reddnes of buttock area at 5-7 o'clock with some fluctuance); no lesions Neurologic: no localized weakness and no generalized weakness Psychiatric: no behavioral changes Physical Exam Constitutional: WD/WN, vitals as above Eyes: PERRL, conjunctivae normal, anicteric sclerae ENMT: external ear and nose normal, oropharynx normal Neck: normal visual inspection Respiratory: normal respiratory effort, lungs clear to auscultation Cardiovascular: RRR, no murmur, no edema Gastrointestinal (Abdomen): Inspection/Auscultation: abdomen normal to inspection and normal bowel sounds; abdomen not distended Percussion/Palpation: abdomen soft; abdomen nontender Rectal Exam: + rectal mass (appears to be abscess at 6 o'clock) Musculoskeletal: Head/Neck/Chest: normocephalic and head atraumatic Skin: no rashes, warm and dry Results & Data ([facility]) Vital Signs (Past 12 Hours) Vital Signs Temp Pulse Resp BP BP Pulse Ox O2 Del Method 10/30/22 15:28 37.0 C 86 18 161/81 H 97 Room Air 10/30/22 07:08 36.9 C 85 18 145/78 H 94 Room Air Diagnostic Findings CT SCAN OF THE PELVIS WITH IV CONTRAST CLINICAL HISTORY: Swelling. Abscess. Rectal pain. COMPARISON STUDY: Pelvic CT dated 11/15/2010. TECHNIQUE: Following the IV administration of 84 cc of Optiray 350, CT scan of the pelvis is performed from the pelvic inlet to the proximal femora. Images reviewed in the axial, sagittal, and coronal planes. IV contrast was administered without complication. A dose lowering technique was utilized adhering to the principles of ALARA. CT DOSE: 1024.19 mGy.cm FINDINGS: The bladder is mildly distended, but otherwise normal in appearance. The uterus is surgically absent. No adnexal lesion is seen. There is no pelvic sidewall or inguinal lymphadenopathy. The visualized portions of small bowel and colon show no evidence of obstruction. A normal appendix is seen in the right lower quadrant. There is inflammation and dermal thickening identified in the right buttock along the gluteal crease. This approaches the perianal soft tissues at the 7:00 position. No organized fluid collection is seen to indicate perianal abscess. No fistulous tract is clearly seen. Inflammation is located below the levator musculature. No perineal soft tissue gas is seen. The skeletal structures are osteopenic. The bony pelvis appears intact. No lytic or blastic lesion is seen. Postoperative change is noted at the lumbosacral junction. A bone graft donor site is seen in the medial left ilium. The regional musculature is normal and symmetric. The iliac vessels are patent. IMPRESSION: 1. There is cellulitis of the right buttock along the gluteal crease as detailed above. 2. No organized fluid collection is seen to indicate perianal abscess. No fistulous tract is clearly identified. 3. The pelvic viscera is normal as visualized noting prior hysterectomy.
--- NOTE | 2022-10-30 21:33 | Hospitalist Progress Note ---
Date of Service October 30, 2022 Assessment & Plan (1) Cellulitis of gluteal region: Plan: Patient is an 82-year-old female with a past medical history of chronic back pain, hiatal hernia with GERD, chronic pain syndrome, insomnia, hypertension, and hyperlipidemia who presents to the hospital for evaluation of right gluteal infection. There is no notable abscess per my evaluation and imaging. She has been started on IV antibiotics and received a one-time dose of Zosyn and has now been started on Unasyn and daptomycin. Patient is hemodynamically stable and comfortable. -Admit to [facility] -Infection seems to have gotten worse on Bactrim -Started Unasyn and daptomycin for broad-spectrum coverage given area of infection -White count currently at 13.38 -Lactated Ringer's at 80 cc/h -Patient is hemodynamically stable -Daily CBC and BMP -Given that there is no notable abscess, no surgical consult at this time -No SIRS criteria, no blood cultures needed at this time -If good resolution/improvement tomorrow, consider de-escalating antibiotics. Mild resolution of erythema, will place on warm compresses. Area of induration may evolve into an abscess, will consider discussion with gen surgery. For now will continue antibiotics as above as this appears to be helping. Area remains indurated on 10/30 cnsulted gen surgery, await input. (2) Back pain: Plan: -Chronic issue, typically on oxycodone through pain management in outpatient setting -Hold oxycodone while in hospital, pain scale with morphine 2 mg for pain 5 through 7, 4 mg for pain 8 through 10. (3) Hiatal hernia with GERD: Plan: -continue Protonix (4) Pain syndrome, chronic: Plan: -See back pain above (5) Hypertension: Plan: -Continue amlodipine, lisinopril, hydrochlorothiazide (6) Hyperlipidemia: Plan: -Statin on hold while being given Unasyn and daptomycin Disposition: Admit to [facility] DVT prophylaxis: Lovenox Diet: Heart healthy CODE STATUS: Full code Admission and Anticipated Discharge Date Admission Date: October 29, 2022 Subjective 82 yo female reports no improvement in her pain. Review of Systems Review of Systems: All systems reviewed & are unremarkable except as noted in HPI & below Physical Exam Physical Exam: Constitutional: WD/WN, vitals as above Eyes: + anicteric sclerae Neck: trachea midline, no thyromegaly Respiratory: normal respiratory effort, lungs clear to auscultation Cardiovascular: RRR, no murmur, no edema Gastrointestinal (Abdomen): normal bowel sounds, soft, nontender, no hepatosplenomegaly Musculoskeletal: Head/Neck/Chest: normocephalic and head atraumatic Skin: decreased erythema, however, area of induration on the right gluteal region remains. There is no focal pore or fluid collection that would be consistent with an abscess. No drainage. Neurologic: moves all extremities Psychiatric: A+Ox3, euthymic affect Lymphatic: no cervical lymphadenopathy Results & Data Results & Data ([facility]) Vital Signs (Past 12 Hours) Vital Signs Temp Pulse Resp BP Pulse Ox O2 Del Method 10/30/22 15:28 37.0 C 86 18 161/81 H 97 Room Air PG Care Time/CCT Total # of Minutes Spent Total Time Spent with Patient: Total time spent is greater than 50% in coordination of care (as documented) at patient's floor/unit and/or counseling patient: Coding Level of Care Code 83674 Subseq Hosp Care Lvl 2 Diagnoses Cellulitis of gluteal region L03.317 Back pain M54.9 Hiatal hernia with GERD K21.9; K44.9 Pain syndrome, chronic G89.4 Hypertension I10 Hypertension type: essential hypertension Hyperlipidemia E78.5 Time Spent (min) 25 (1) Hypertension Hypertension type: essential hypertension Qualified Code(s): I10 - Essential (primary) hypertension
[2022-10-31] MEDS: MoRPHine SULFATE 4 MG/ML 1 ML CARP\\VIAL IV PRN ×3 (01:55→11:34)
[2022-10-31] MEDS: DAPTOmycin 225 MG in SYRINGE 0 ML IV SCH (01:55)
[2022-10-31] MEDS: LACTATED RINGER'S 1,000 ML IV SCH ×2 (05:00→21:13)
[2022-10-31] MEDS: ACETAMINOPHEN 325 MG TAB PO PRN (05:05)
[2022-10-31] MEDS: AMPICILLIN/SULBACTAM SOD 1,500 MG in 0.9 % SODIUM CHLORIDE 100 ML IV SCH ×4 (05:05→21:20)
[2022-10-31] MEDS: ENOXAPARIN INJ 30 MG/0.3 ML SYR SQ SCH (05:11)
[2022-10-31 08:08] LABS: Est GFR (African American) 101.2 ml/min; Est GFR (Non-African American) 87.4 ml/min
[2022-10-31] MEDS: oxyCODONE HCL IR 5 MG TAB (IMMEDIATE RELEASE) PO SCH (09:49)
[2022-10-31] MEDS: amLODIPine BESYLATE 5 MG TAB PO SCH (09:50)
--- NOTE | 2022-10-31 13:38 | Anesthesiology Consultation ---
Date of Service October 31, 2022 Assessment & Plan (1) Encounter for pre-operative examination: Chart Review Chart Review: Acceptable Risk for Surgery and Patient NOT seen in Pre Admission Testing Consults Requested none History Surgery Operation Date: 10/31/22 07:00 Proposed Procedures p Perirectal Abscess - Franck Yates MD Height/Weight Height: 5 ft 5 in Weight: 75.1 kg Allergies Allergy/AdvReac Type Severity Reaction Status Date / Time trazodone AdvReac Intermediate Inflammation Verified 09/22/22 10:43 of the sinuses and tachycardia. Medications Home Medications Medication Instructions Recorded Confirmed Last Taken ascorbic acid (vitamin C) 500 mg 1 g PO QAM 05/26/21 10/28/22 09/27/22 tablet cholecalciferol (vitamin D3) 125 125 mcg PO QAM 05/26/21 10/28/22 09/27/22 mcg (5,000 unit) capsule multivitamin 1 tab PO QAM 05/26/21 10/28/22 09/27/22 zinc 50 mg tablet 50 mg PO QAM 05/26/21 10/28/22 09/27/22 lywpldsveh-lhpgnqiajbqve-tqxmxmob 1 tab PO .COMPLEX PRN migraine 09/08/22 10/28/22 Unknown 50 mg-325 mg-40 mg tablet headache #14 tabs estradiol 0.5 mg tablet 0.5 mg PO QAM #90 tabs 09/19/22 10/28/22 09/27/22 amlodipine 5 mg tablet 5 mg PO QAM 09/22/22 10/28/22 09/28/22 07:30 atorvastatin 40 mg tablet 40 mg PO QAM 09/22/22 10/28/22 09/28/22 07:30 hydrocodone 10 mg-acetaminophen 1 tab PO Q4H PRN chronic pain 09/22/22 10/28/22 Unknown 300 mg tablet lisinopril 20 1 tab PO QAM 09/22/22 10/28/22 09/27/22 mg-hydrochlorothiazide 25 mg tablet pantoprazole 40 mg tablet,delayed 40 mg PO QAM 09/22/22 10/28/22 09/28/22 07:30 release sulfamethoxazole 800 1 tab PO BID 7 days #14 tabs 10/25/22 10/28/22 Unknown mg-trimethoprim 160 mg tablet (Bactrim DS) Active Medications Generic Name Dose Route Start Last Admin Trade Name Freq PRN Reason Stop Dose Admin Acetaminophen 650 mg 10/28/22 01:55 10/31/22 05:05 Acetaminophen 325 Mg Tab PO 11/27/22 01:54 650 mg Q4H PRN Administration Pain or Fever Amlodipine Besylate 5 mg 10/28/22 09:00 10/31/22 09:50 Amlodipine Besylate 5 Mg Tab PO 11/27/22 08:59 5 mg QAM ANNE Administration Ascorbic Acid 1,000 mg 10/28/22 09:00 10/30/22 08:26 Ascorbic Acid 500 Mg Tab PO 11/27/22 08:59 1,000 mg QAM ANNE Administration Enoxaparin Sodium 30 mg 10/28/22 06:00 10/31/22 05:11 Enoxaparin Inj 30 Mg/0.3 Ml Syr SQ 11/27/22 05:59 30 mg Q24H ANNE Administration Lisinopril/HCTZ 1 tab 10/28/22 09:00 10/30/22 08:26 Lisinopril/Hctz 20/25mg 1 Tab PO 11/27/22 08:59 1 tab QAM ANNE Administration Daptomycin 225 mg/ Syringe 4.5 mls @ 2.25 mls/min 10/28/22 02:30 10/31/22 01:55 IV 11/04/22 02:29 2.25 mls/min Q24H ANNE Administration Protocol Ampicillin Sodium/Sulbactam 104 mls @ 200 mls/hr 10/28/22 04:00 10/31/22 11:24 Sodium 1,500 mg/ Sodium IV 11/04/22 03:59 Infused Chloride Q6H ANNE Infusion Protocol Lactated Ringer's 1,000 mls @ 80 mls/hr 10/28/22 01:55 10/31/22 11:39 Lr IV 11/27/22 01:54 80 mls/hr .[id number] ANNE Infusion Morphine Sulfate 4 mg 10/29/22 18:33 10/31/22 11:34 Morphine Sulfate 4 Mg/Ml 1 Ml Carp\Vial IV 11/11/22 01:54 4 mg Q4H PRN Administration Pain (8-10) Oxycodone HCl 20 mg 10/29/22 11:00 10/31/22 09:49 Oxycodone Hcl Ir 5 Mg Tab (Immediate Release) PO 11/12/22 10:59 20 mg BID ANNE Administration Pantoprazole Sodium 40 mg 10/28/22 09:00 10/30/22 08:26 Pantoprazole 40 Mg Tab PO 11/27/22 08:59 40 mg QAM ANNE Administration Vitamin D 5,000 units 10/28/22 09:00 10/30/22 08:26 Cholecalciferol 5,000 Units 125 Mcg Tab PO 11/27/22 08:59 5,000 units QAM ANNE Administration NPO Date Last Intake of Fluids: 10/30/22 Time Last Intake of Fluids: 23:55 Last Intake of Fluids Comment: sip of water w/meds Date Last Intake of Solids: 10/30/22 Time Last Intake of Solids: 18:00 Past Medical History Medical History Cervicalgia Chronic constipation Chronic reflux esophagitis Hiatal hernia with GERD Hyperlipidemia Hypertension Insomnia Ischemic colitis no current issues Lumbar canal stenosis Mesenteric vascular insufficiency Migraine headache occasional Pain syndrome, chronic follows with pain management monthly - Dr Sánchez ([place]) Pulmonary nodule monitoring Renal artery atherosclerosis, unilateral Past Family History Family History Mother Breast cancer Father Myocardial infarction Other Hypertension No family history of adverse response to anesthesia Denies family history of Crohn's disease Colorectal cancer Ulcerative colitis Past Surgical History Surgical History H/O breast surgery puncture aspiration of cyst 1958 H/O colonoscopy H/O esophagogastroduodenoscopy H/O hysterectomy with oophorectomy H/O laminectomy lumbar laminectomy History of cataract surgery Left History of tonsillectomy S/P epidural steroid injection S/P lumbar fusion x3 (extensive lumbar fusions) Social History Smoking Status: Never smoker Hx Alcohol Use: Yes Alcohol type: wine alcohol intake frequency: 0-2 drinks per day Hx Substance Use: No substance use type: does not use Physical Exam Vital Signs Last Vital Signs Temp 36.6 C 10/31/22 13:33 Pulse 82 10/31/22 13:33 Resp 18 10/31/22 13:33 BP 163/69 H 10/31/22 13:33 Pulse Ox 96 10/31/22 13:33 O2 Del Method 10/31/22 13:33 Testing Laboratory Results 10/30/22 08:14 10/31/22 06:39 Urine Color Yellow 10/27/22 Unknown Urine Appearance Clear (Clear) 10/27/22 Unknown Urine pH 7.5 (4.5-7.5) 10/27/22 Unknown Ur Specific [place] 1.035 (1.000-1.030) H 10/27/22 Unknown Urine Protein Negative (Negative) 10/27/22 Unknown Urine Glucose (UA) Negative (Negative) 10/27/22 Unknown Urine Ketones Negative (Negative) 10/27/22 Unknown Urine Nitrite Negative (Negative) 10/27/22 Unknown Ur Leukocyte Esterase Negative (Negative) 10/27/22 Unknown Electrocardiogram Date: 02/18/21 Findings: + NSR @ (62) and + RBBB (incomplete) Echocardiogram Date: 03/03/21 EF: 60-65 LV Function: normal Other Findings: + atrial enlargement (moderate left) Valvular Disease: + MR (mild)
[2022-10-31] MEDS ORDERED: LIDOCAINE 2% MPF LOCAL 5 ML VIAL INFIL ONE ×2 (13:40→14:10)
[2022-10-31] MEDS ORDERED: PROPOFOL IV EMULSION 10 MG/ML 20 ML VIAL IV ONE (13:40)
[2022-10-31] MEDS ORDERED: fentaNYL citrate 100 MCG/2 ML VIAL ONE ×3 (13:41→17:10)
[2022-10-31] MEDS ORDERED: GELATIN SPONGE SZ 100 ONE (13:45)
[2022-10-31] MEDS ORDERED: LIDOCAINE 1% LOCAL 20 ML VIAL ONE (13:45)
[2022-10-31] MEDS ORDERED: BACITRACIN OINT 15 GM TUBE ONE (13:45)
[2022-10-31] MEDS ORDERED: BUPIVACAINE 0.5 % 5 MG/1 ML MPF 30ML VIAL ONE (13:45)
[2022-10-31] MEDS ORDERED: ePHEDrine sulfate 50 MG/ML AMP IV PRN (13:48)
[2022-10-31] MEDS ORDERED: ONDANSETRON INJ 2 MG/ML 2 ML VIAL IV PRN (13:48)
[2022-10-31] MEDS ORDERED: ATROPINE SULFATE 0.1 MG/ML 10ML SYR IV PRN (13:48)
[2022-10-31] MEDS ORDERED: HYDROmorphone INJ 1 MG/ML SYRINGE IV PRN (13:48)
[2022-10-31] MEDS ORDERED: LABETALOL HCL IV 5 MG/ML 20ML IV PRN (13:48)
[2022-10-31] MEDS ORDERED: PHENYLEPHRINE 100MCG/ML 5ML SYR IV PRN (13:48)
--- NOTE | 2022-10-31 13:48 | History & Physical Bridge Note ---
Date of Service October 31, 2022 History & Physical Bridge Note I have examined the patient, reviewed the History & Physical and in the interval since the performance of the History & Physical I have noted the following changes of clinical significance: no changes noted, I reviewed pt's H/P , labs and Ct scan with pt, I recommend to do I/D perirectal abscess, D/W benefits, risks and alternatives of the surgery, the risks - infection, bleeding, sepsis, recurrence, pt understood, she agrees with surgery, she signed informed consent, I answered all questions, Supervising Physician Co-Signing Physician Notes Patient seen and examined, chart reviewed, case discussed with Dr. Zaragoza and I agree with the assessment and plan as above. In brief, patient is a pleasant 82yo female with history of HTN, HLP and GERD presenting with right gluteal infection. Her symptoms began 4 days ago as a tender area on her right gluteal region. She reports the area was 3 inches in size at that point. She was seen by her PCP and was started on Bactrim two days ago. She has had progression of the pain and induration over the last two days. She is very uncomfortable. Denies fever, chills, nausea, malaise. On exam she is afebrile, hypertensive, otherwise HD stable. NAD Skin - area of redness and induration noted on right gluteal area, tender to palpation. No crepitus, bullae, lymphangitis, no drainage or abscess appreciated. HEENT - MMM, Neck supple, no JVD Heart - +S1/S2, regular, no m/r/g Lungs - CTA Abd - soft, NT/ND Ext - warm, well perfused Labs and images reviewed. WBC=13.38 Localized inflammatory findings noted on CT of the pelvis Assessment/Plan -Montior area of infection -Antibiotic treatment with Unasyn and Daptomycin for now -Gentle hydration -Pain control -Remainder as above
[2022-10-31] MEDS ORDERED: ONDANSETRON INJ 2 MG/ML 2 ML VIAL ONE (14:10)
[2022-10-31] MEDS ORDERED: DEXAMETHASONE SOD INJ 4 MG/ML VIAL ONE (14:10)
--- NOTE | 2022-10-31 14:23 | Post Operative Brief Note ---
Immediate Post Op Note v1 Date of Surgery October 31, 2022 Pre & Post Diagnosis Operation Date: 10/31/22 07:00 Pre-Op Diagnosis: Gluteal Infection, perirectal abscess Post-Op Diagnosis: Gluteal Infection, perirectal abscess I identified the patient and participated in the time-out.: Yes Procedure Operation Date: 10/31/22 07:00 Actual Procedures p Perirectal Abscess(Not Applicable) - Franck Yates MD Surgeon Franck Yates MD Php Word[employer] Developer surgical dressing maker Estimated Blood Loss 5 Findings Consistent with Post-Op Diagnosis perirectal abscess Fluids 600ml Drains [place] Drain and Other (packing the wound) Complications none Disposition Accompanied Patient To Recovery: Yes
[2022-10-31] MEDS: fentaNYL citrate 100 MCG/2 ML VIAL IV PRN ×3 (14:45→15:00)
--- NOTE | 2022-10-31 15:25 | Anesthesiology Progress Note ---
Date of Service October 31, 2022 Anesthesia Post Procedure Vital Signs Vital Signs: Temp Pulse Pulse Pulse Resp BP Pulse Ox 10/31/22 15:20 36.3 C L 75 14 148/68 H 96 10/31/22 15:10 81 18 143/91 H 100 10/31/22 15:00 78 17 155/75 H 96 10/31/22 14:50 77 15 150/72 H 94 10/31/22 14:40 82 12 160/93 H 100 10/31/22 14:34 36.6 C 88 15 157/64 H 100 10/31/22 13:33 36.6 C 82 18 163/69 H 96 10/31/22 09:48 154/76 H 10/31/22 07:03 36.9 C 71 18 149/73 H 95 10/30/22 21:11 36.8 C 87 16 152/77 H 95 10/30/22 15:28 37.0 C 86 18 161/81 H 97 O2 Del Method O2 Flow Rate 10/31/22 15:20 Nasal Cannula 2 10/31/22 15:10 Nasal Cannula 2 10/31/22 15:00 Nasal Cannula 2 10/31/22 14:50 Room Air 10/31/22 14:40 Oxymask 5 10/31/22 14:34 Oxymask 5 10/31/22 13:33 Room Air 10/31/22 09:48 10/31/22 07:03 Room Air 10/30/22 21:11 Room Air 10/30/22 15:28 Room Air Pain Intensity Rectal: Pain Intensity: 2 Back: Pain Intensity: 2 Transfer of Care Handoff Completed per policy Notes Mental Status: alert / awake / arousable Patient Amnestic to Procedure: Yes Nausea / Vomiting: adequately controlled Pain: adequately controlled Airway Patency, RR, SpO2: stable & adequate BP & HR: stable & adequate Hydration State: stable & adequate Anesthetic Complications: no major complications apparent and Pt Satisfied with anesthetic care
[2022-10-31] MEDS ORDERED: HYDROCODONE ACETAMINOPHEN PO PRN (15:41)
[2022-10-31] MEDS ORDERED: BUTALBITAL/ACETAMIN/CAFFEINE TAB PO PRN (15:41)
[2022-10-31] MEDS: LISINOPRIL/HCTZ 20/25MG 1 TAB PO SCH (16:05)
[2022-10-31] MEDS: ASCORBIC ACID 500 MG TAB PO SCH (16:06)
[2022-10-31] MEDS: CHOLECALCIFEROL 5,000 UNITS 125 MCG TAB PO SCH (16:06)
[2022-10-31] MEDS: PANTOprazole 40 MG TAB PO SCH (16:06)
[2022-10-31] MEDS: MoRPHine SULFATE 2 MG/ML CARP IV PRN (17:00)
[2022-10-31] MEDS ORDERED: SULFAMETHOXAZOLE/TRIMETHOPRIM DS 800/160MG TAB PO SCH (21:00)
[2022-10-31] MEDS: oxyCODONE HCL 20 MG TABCR (OxyCONTIN) PO SCH (21:12)
--- NOTE | 2022-10-31 22:08 | Hospitalist Progress Note ---
Date of Service October 31, 2022 Assessment & Plan (1) Cellulitis of gluteal region: Plan: Patient is an 82-year-old female with a past medical history of chronic back pain, hiatal hernia with GERD, chronic pain syndrome, insomnia, hypertension, and hyperlipidemia who presents to the hospital for evaluation of right gluteal infection. There is no notable abscess per my evaluation and imaging. She has been started on IV antibiotics and received a one-time dose of Zosyn and has now been started on Unasyn and daptomycin. Patient is hemodynamically stable and comfortable. -Admit to [facility] -Infection seems to have gotten worse on Bactrim -Started Unasyn and daptomycin for broad-spectrum coverage given area of infection -White count currently at 13.38 -Lactated Ringer's at 80 cc/h -Patient is hemodynamically stable -Daily CBC and BMP -Given that there is no notable abscess, no surgical consult at this time -No SIRS criteria, no blood cultures needed at this time -If good resolution/improvement tomorrow, consider de-escalating antibiotics. Mild resolution of erythema, will place on warm compresses. Area of induration may evolve into an abscess, will consider discussion with gen surgery. For now will continue antibiotics as above as this appears to be helping. s/p I AND D ON 10/31 AWAITING SURGICAL NOTE. CONTINUE CURRENT ANTIBIOTICS (2) Back pain: Plan: -Chronic issue, typically on oxycodone through pain management in outpatient setting -Hold oxycodone while in hospital, pain scale with morphine 2 mg for pain 5 through 7, 4 mg for pain 8 through 10. (3) Hiatal hernia with GERD: Plan: -continue Protonix (4) Pain syndrome, chronic: Plan: -See back pain above (5) Hypertension: Plan: -Continue amlodipine, lisinopril, hydrochlorothiazide (6) Hyperlipidemia: Plan: -Statin on hold while being given Unasyn and daptomycin Disposition: Admit to [facility] DVT prophylaxis: Lovenox Diet: Heart healthy CODE STATUS: Full code Admission and Anticipated Discharge Date Admission Date: October 29, 2022 Subjective Patient reports having pain controlled after procedure Review of Systems Review of Systems: All systems reviewed & are unremarkable except as noted in HPI & below Physical Exam Physical Exam: Constitutional: WD/WN, vitals as above Eyes: + anicteric sclerae Neck: trachea midline, no thyromegaly Respiratory: normal respiratory effort, lungs clear to auscultation Cardiovascular: RRR, no murmur, no edema Gastrointestinal (Abdomen): normal bowel sounds, soft, nontender, no hepatosplenomegaly Musculoskeletal: Head/Neck/Chest: normocephalic and head atraumatic Skin: decreased erythema, however, area of induration on the right gluteal region remains. There is no focal pore or fluid collection that would be consistent with an abscess. No drainage. Neurologic: moves all extremities Psychiatric: A+Ox3, euthymic affect Lymphatic: no cervical lymphadenopathy Results & Data Results & Data ([facility]) Vital Signs (Past 12 Hours) Vital Signs Temp Pulse Pulse Resp BP Pulse Ox O2 Del Method 10/31/22 21:24 36.5 C 82 16 149/74 H 93 Room Air 10/31/22 19:02 95 Room Air 10/31/22 18:51 36.9 C 85 18 165/78 H 91 Room Air 10/31/22 18:02 36.9 C 78 18 146/74 H 94 Room Air 10/31/22 16:45 36.7 C 87 16 152/71 H 97 Room Air 10/31/22 16:13 36.7 C 85 16 159/84 H 93 Room Air 10/31/22 15:44 36.9 C 82 16 155/77 H 94 Room Air 10/31/22 15:30 77 14 150/73 H 96 Nasal Cannula 10/31/22 15:20 36.3 C L 75 14 148/68 H 96 Nasal Cannula 10/31/22 15:10 81 18 143/91 H 100 Nasal Cannula 10/31/22 15:00 78 17 155/75 H 96 Nasal Cannula 10/31/22 14:50 77 15 150/72 H 94 Room Air 10/31/22 14:40 82 12 160/93 H 100 Oxymask 10/31/22 14:34 36.6 C 88 15 157/64 H 100 Oxymask 10/31/22 13:33 36.6 C 82 18 163/69 H 96 Room Air O2 Flow Rate 10/31/22 21:24 10/31/22 19:02 10/31/22 18:51 10/31/22 18:02 10/31/22 16:45 10/31/22 16:13 10/31/22 15:44 10/31/22 15:30 2 10/31/22 15:20 2 10/31/22 15:10 2 10/31/22 15:00 2 10/31/22 14:50 10/31/22 14:40 5 10/31/22 14:34 5 10/31/22 13:33 PG Care Time/CCT Total # of Minutes Spent Total Time Spent with Patient: Total time spent is greater than 50% in coordination of care (as documented) at patient's floor/unit and/or counseling patient: Coding Level of Care Code 38445 Subseq Hosp Care Lvl 2 Diagnoses Cellulitis of gluteal region L03.317 Back pain M54.9 Hiatal hernia with GERD K21.9; K44.9 Pain syndrome, chronic G89.4 Hypertension I10 Hypertension type: essential hypertension Hyperlipidemia E78.5 Time Spent (min) 25 (1) Hypertension Hypertension type: essential hypertension Qualified Code(s): I10 - Essential (primary) hypertension
--- NOTE | 2022-10-31 23:28 | Operative Report (OR) ---
DATE OF PROCEDURE: 10/31/2022 PREOPERATIVE DIAGNOSIS: Perirectal abscess. POSTOPERATIVE DIAGNOSIS: Perirectal abscess. OPERATION: Incision and drainage of perirectal abscess. SURGEON: Franck Yates MD. ANESTHESIA: General. ESTIMATED BLOOD LOSS: About 10 mL. FINDINGS: Perirectal abscess. COMPLICATIONS: None. INDICATIONS FOR THE PROCEDURE: This is an 82-year-old female who was admitted to the hospital for perirectal abscess. I recommended to do incision and drainage of perirectal abscess. I did talk to the patient about the benefit, risk, alternate procedure. I indicated the risks may include, but not limited to, such as bleeding, infection, recurrence, sepsis, may need more procedure, scar and pain. The patient understands and she signed informed consent and I answered all questions. DETAILS OF PROCEDURE: After we identified the patient and verified the procedure, we brought the patient to the OR, put the patient in the lithotomy position on the OR table. The patient received SCD on bilateral legs to prevent DVT. Also, patient received prophylactic IV antibiotic and the patient received general anesthesia without difficulty. The rectal area was prepped and draped in routine sterile fashion. After timeout, I injected the local anesthesia around the perirectal abscess area located at 7 o'clock with bulging and some drainage, redness. Once we injected local anesthesia by using 1% lidocaine mixed with 0.5% Marcaine, I made about 3 cm incision and there was pus that came out immediately, that I sent for wound culture. Once we cleaned up all the pus, I decided to use 1 Barbara drain to drain the abscess, used a 3-0 nylon to fix the Barbara drainage on the skin. Then, I chose quarter-inch packing to pack the wound. No active bleeding and hemostasis obtained. Then, we put the dressing on. The patient tolerated the procedure well. All instrument, needle and sponge counts were correct x2 at the end of the case. The patient was transferred to recovery room in stable condition. After the procedure, I did talk to the patient about the OR finding and the procedure we did, she understands. Job ID: [id number] [facility]
[2022-11-01] MEDS: MoRPHine SULFATE 4 MG/ML 1 ML CARP\\VIAL IV PRN ×2 (01:41→14:30)
[2022-11-01] MEDS: DAPTOmycin 225 MG in SYRINGE 0 ML IV SCH (02:36)
[2022-11-01] MEDS: AMPICILLIN/SULBACTAM SOD 1,500 MG in 0.9 % SODIUM CHLORIDE 100 ML IV SCH ×4 (04:00→22:10)
[2022-11-01] MEDS: LISINOPRIL/HCTZ 20/25MG 1 TAB PO SCH (08:30)
[2022-11-01] MEDS: ACETAMINOPHEN 325 MG TAB PO PRN (08:30)
[2022-11-01] MEDS: amLODIPine BESYLATE 5 MG TAB PO SCH (08:30)
[2022-11-01] MEDS: PANTOprazole 40 MG TAB PO SCH (08:31)
[2022-11-01] MEDS: CHOLECALCIFEROL 5,000 UNITS 125 MCG TAB PO SCH (08:31)
[2022-11-01] MEDS: ENOXAPARIN INJ 30 MG/0.3 ML SYR SQ SCH (08:31)
[2022-11-01] MEDS: ASCORBIC ACID 500 MG TAB PO SCH (08:31)
[2022-11-01] MEDS: estradioL 1 MG TAB PO SCH (08:32)
[2022-11-01] MEDS: MULTIVITAMIN TAB PO SCH (08:32)
[2022-11-01] MEDS: ZINC SULFATE 220 MG CAPSULE PO SCH (08:32)
[2022-11-01] MEDS: oxyCODONE HCL 20 MG TABCR (OxyCONTIN) PO SCH ×2 (08:35→20:25)
[2022-11-01] MEDS ORDERED: ATORVASTATIN 40 MG TAB PO SCH (09:00)
[2022-11-01 10:45] LABS: Basophils # (auto) 0.01 K/uL (0-0.2); Basophils % (auto) 0.1 %; Eosinophils # (auto) 0.01 K/uL (0-0.50); Eosinophils % (auto) 0.1 %; Hematocrit (blood only) 36.4 % (34.1-44.9); Hemoglobin 12.4 g/dl (12.0-16.0); Immature Granulocytes # (auto) 0.06 K/uL (0.00-0.02); Immature Granulocytes % (auto) 0.6 %; Lymphocytes # (auto) 1.33 K/uL (1.2-3.4); Lymphocytes % (auto) 13.6 %; Mean Corpuscular Hemoglobin 31.7 pg (25.0-34.0); Mean Corpuscular Hgb Conc 34.1 g/dL (32.0-36.0); Mean Corpuscular Volume 93.1 fL (80.0-100.0); Mean Platelet Volume 8.7 fL (9.4-12.3); Monocytes # (auto) 0.52 K/uL (0.24-0.82); Monocytes % (auto) 5.3 %; Neutrophils # (auto) 7.82 K/uL (1.4-6.5); Neutrophils % (auto) 80.3 %; Platelet Count 335 K/uL (130-400); RDW Standard Deviation 41.1 fL (36.4-46.3); Red Blood Count 3.91 M/uL (3.93-5.22); White Blood Count 9.75 K/ul (4.8-10.8)
[2022-11-01 11:24] LABS: Albumin Level 3.4 gm/dl (3.4-5.0); BUN Creatinine Ratio 24.6 (10-20); Bilirubin,Total 0.3 mg/dl (0.2-1.0); Calcium 9.2 mg/dl (8.5-10.1); Creatinine Clr Calc Pharmacy 72.1 ml/min; Est GFR (African American) 97.8 ml/min; Est GFR (Non-African American) 84.4 ml/min; Globulin 3.5 gm/dl (2.5-4.0); Potassium 3.5 mmol/L (3.5-5.1); Total Protein 6.9 gm/dl (6.0-8.3)
[2022-11-01] MEDS: LACTATED RINGER'S 1,000 ML IV SCH ×2 (11:50→23:03)
--- NOTE | 2022-11-01 16:32 | Surgery Progress Note ---
Date of Service November 01, 2022 Assessment & Plan (1) Cellulitis of gluteal region: Plan: POD # 1 s/p Incision and drainage of Perirectal abscess -afebrile, vss - postop pain controlled - no leukocytosis Plan: Will need daily wound packing changes. To keep laci drain in and follow-up with Dr. Yates in 1-2 weeks. Will need to follow-up with wound care center for wound care Continue pain management as needed will need bowel regimen to prevent constipation or straining continue Antibiotics Continue medical management Okay from surgery standpoint for discharge tomorrow Dr. Yates has seen and examined pt, recommends above plan. Admission and Anticipated Discharge Date Admission Date: October 29, 2022 Subjective was having pain but seems to be improving slowly has not had bowel movement tolerating diet no fevers or chills wound care nurse changed dressings Physical Exam Constitutional: WD/WN, vitals as above no acute distress and not ill appearing Respiratory: normal respiratory effort; no respiratory distress Gastrointestinal (Abdomen): External perirectal exam: New dressing just applied, clean/dry/intact. Wound not inspected as just changed. Wound nurse visit note review and wound image reviewed, mild surrounding erythema. Flasher in place. Skin: no rashes, warm and dry Psychiatric: A+Ox3, euthymic affect Results & Data ([facility]) Vital Signs (Past 12 Hours) Vital Signs Temp Pulse Resp BP Pulse Ox O2 Del Method 11/01/22 14:30 36.5 C 80 16 139/72 94 Room Air 11/01/22 07:18 36.4 C L 81 16 164/78 H 94 Room Air Laboratory Results 11/01/22 11/01/22 Range/Units 10:29 10:29 WBC 9.75 (4.8-10.8) K/ul RBC 3.91 L (3.93-5.22) M/uL Hgb 12.4 (12.0-16.0) g/dl Hct 36.4 (34.1-44.9) % MCV 93.1 (80.0-100.0) fL MCH 31.7 (25.0-34.0) pg MCHC 34.1 (32.0-36.0) g/dL RDW Std Deviation 41.1 (36.4-46.3) fL RDW Coeff of Gilda 12.0 (11.5-14.5) % Plt Count 335 (130-400) K/uL MPV 8.7 L (9.4-12.3) fL Immature Gran % (Auto) 0.6 % Neut % (Auto) 80.3 % Lymph % (Auto) 13.6 % Bureau % (Auto) 5.3 % Eos % (Auto) 0.1 % Baso % (Auto) 0.1 % Neut # (Auto) 7.82 H (1.4-6.5) K/uL Lymph # (Auto) 1.33 (1.2-3.4) K/uL Bureau # (Auto) 0.52 (0.24-0.82) K/uL Eos # (Auto) 0.01 (0-0.50) K/uL Baso # (Auto) 0.01 (0-0.2) K/uL Immature Gran # (Auto) 0.06 H (0.00-0.02) K/uL Sodium 139 (136-145) mmol/L Potassium 3.5 (3.5-5.1) mmol/L Chloride 100 (98-107) mmol/L Carbon Dioxide 32 (21-32) mmol/L Anion Gap 7 (3-11) BUN 15 (6-23) mg/dl Creatinine 0.61 (0.6-1.2) mg/dl Est Cr Clr Drug Dosing 72.1 ml/min Est GFR ( Amer) 97.8 ml/min Est GFR (Non-Af Amer) 84.4 ml/min BUN/Creatinine Ratio 24.6 H (10-20) Glucose 171 H (70-99(Fasting)) mg/dl Calcium 9.2 (8.5-10.1) mg/dl Total Bilirubin 0.3 (0.2-1.0) mg/dl AST 24 (13-39) U/L ALT 21 (7-52) U/L Alkaline Phosphatase 63 (34-104) U/L Total Protein 6.9 (6.0-8.3) gm/dl Albumin 3.4 (3.4-5.0) gm/dl Globulin 3.5 (2.5-4.0) gm/dl Albumin/Globulin Ratio 1.0 (0.9-2)
--- NOTE | 2022-11-01 21:59 | Hospitalist Progress Note ---
Date of Service November 01, 2022 Assessment & Plan (1) Cellulitis of gluteal region: Plan: Patient is an 82-year-old female with a past medical history of chronic back pain, hiatal hernia with GERD, chronic pain syndrome, insomnia, hypertension, and hyperlipidemia who presents to the hospital for evaluation of right gluteal infection. There is no notable abscess per my evaluation and imaging. She has been started on IV antibiotics and received a one-time dose of Zosyn and has now been started on Unasyn and daptomycin. Patient is hemodynamically stable and comfortable. -Admit to [facility] -Infection seems to have gotten worse on Bactrim -Started Unasyn and daptomycin for broad-spectrum coverage given area of infection -White count currently at 13.38 -Lactated Ringer's at 80 cc/h -Patient is hemodynamically stable -Daily CBC and BMP -Given that there is no notable abscess, no surgical consult at this time -No SIRS criteria, no blood cultures needed at this time -If good resolution/improvement tomorrow, consider de-escalating antibiotics. Mild resolution of erythema, will place on warm compresses. Area of induration may evolve into an abscess, will consider discussion with gen surgery. For now will continue antibiotics as above as this appears to be helping. S/P I AND D ON 10/31. CONTINUE CURRENT ANTIBIOTICS Anticipate discharge on 11/01 (2) Back pain: Plan: -Chronic issue, typically on oxycodone through pain management in outpatient setting -Hold oxycodone while in hospital, pain scale with morphine 2 mg for pain 5 through 7, 4 mg for pain 8 through 10. (3) Hiatal hernia with GERD: Plan: -continue Protonix (4) Pain syndrome, chronic: Plan: -See back pain above (5) Hypertension: Plan: -Continue amlodipine, lisinopril, hydrochlorothiazide (6) Hyperlipidemia: Plan: -Statin on hold while being given Unasyn and daptomycin Disposition: Admit to [facility] DVT prophylaxis: Lovenox Diet: Heart healthy CODE STATUS: Full code Admission and Anticipated Discharge Date Admission Date: October 29, 2022 Subjective 82 yo female reports feeling well. She has no new complaints. Review of Systems Review of Systems: All systems reviewed & are unremarkable except as noted in HPI & below Physical Exam Physical Exam: Constitutional: WD/WN, vitals as above Eyes: + anicteric sclerae Neck: trachea midline, no thyromegaly Respiratory: normal respiratory effort, lungs clear to auscultation Cardiovascular: RRR, no murmur, no edema Gastrointestinal (Abdomen): normal bowel sounds, soft, nontender, no hepatosplenomegaly Musculoskeletal: Head/Neck/Chest: normocephalic and head atraumatic Skin: dry dressing noted Neurologic: moves all extremities Psychiatric: A+Ox3, euthymic affect Lymphatic: no cervical lymphadenopathy Results & Data Results & Data ([facility]) Vital Signs (Past 12 Hours) Vital Signs Temp Pulse Resp BP Pulse Ox O2 Del Method 11/01/22 14:30 36.5 C 80 16 139/72 94 Room Air PG Care Time/CCT Total # of Minutes Spent Total Time Spent with Patient: Total time spent is greater than 50% in coordination of care (as documented) at patient's floor/unit and/or counseling patient: Coding Level of Care Code 41250 Subseq Hosp Care Lvl 2 Diagnoses Cellulitis of gluteal region L03.317 Back pain M54.9 Hiatal hernia with GERD K21.9; K44.9 Pain syndrome, chronic G89.4 Hypertension I10 Hypertension type: essential hypertension Hyperlipidemia E78.5 (1) Hypertension Hypertension type: essential hypertension Qualified Code(s): I10 - Essential (primary) hypertension
[2022-11-01] MEDS: MoRPHine SULFATE 2 MG/ML CARP IV PRN (22:10)
[2022-11-02] MEDS: DAPTOmycin 225 MG in SYRINGE 0 ML IV SCH (02:03)
[2022-11-02] MEDS: MoRPHine SULFATE 2 MG/ML CARP IV PRN ×2 (02:37→14:59)
[2022-11-02] MEDS: AMPICILLIN/SULBACTAM SOD 1,500 MG in 0.9 % SODIUM CHLORIDE 100 ML IV SCH ×2 (03:49→10:27)
[2022-11-02] MEDS: ENOXAPARIN INJ 30 MG/0.3 ML SYR SQ SCH (05:53)
[2022-11-02] MEDS: estradioL 1 MG TAB PO SCH (08:14)
[2022-11-02] MEDS: PANTOprazole 40 MG TAB PO SCH (08:14)
[2022-11-02] MEDS: oxyCODONE HCL 20 MG TABCR (OxyCONTIN) PO SCH (08:14)
[2022-11-02] MEDS: MULTIVITAMIN TAB PO SCH (08:14)
[2022-11-02] MEDS: CHOLECALCIFEROL 5,000 UNITS 125 MCG TAB PO SCH (08:14)
[2022-11-02] MEDS: ZINC SULFATE 220 MG CAPSULE PO SCH (08:14)
[2022-11-02] MEDS: LISINOPRIL/HCTZ 20/25MG 1 TAB PO SCH (08:14)
[2022-11-02] MEDS: ASCORBIC ACID 500 MG TAB PO SCH (08:14)
[2022-11-02] MEDS: LACTATED RINGER'S 1,000 ML IV SCH (08:14)
[2022-11-02] MEDS: amLODIPine BESYLATE 5 MG TAB PO SCH (08:14)
--- NOTE | 2022-11-02 10:52 | Surgery Progress Note ---
Date of Service November 02, 2022 Assessment & Plan (1) Cellulitis of gluteal region: Plan: POD #2 s/p Incision and drainage of Perirectal abscess -afebrile, vss - postop pain controlled - no leukocytosis Plan: Will need daily wound packing changes. To keep laci drain in and follow-up with Dr. Yates in 1-2 weeks. Will need to follow-up with wound care center for wound care Continue pain management as needed will need bowel regimen to prevent constipation or straining continue Antibiotics, can transition to oral bactrim on discharge for 10 days Continue medical management Okay from surgery standpoint for discharge Dr. Yates has seen and examined pt, recommends above plan. Admission and Anticipated Discharge Date Admission Date: October 29, 2022 Subjective Feeling better today Pain controlled better today Still has not had a bowel movement Tolerating diet Physical Exam Constitutional: WD/WN, vitals as above no acute distress and not ill appearing Neck: normal visual inspection and trachea midline Respiratory: normal respiratory effort; no respiratory distress Skin: no rashes, warm and dry Psychiatric: A+Ox3, euthymic affect Results & Data ([facility]) Vital Signs (Past 12 Hours) Vital Signs Temp Pulse Resp BP Pulse Ox O2 Del Method 11/02/22 07:03 36.4 C L 71 16 161/80 H 95 Room Air 11/01/22 22:55 36.9 C 74 14 128/65 94 Room Air Laboratory Results 11/01/22 Range/Units 10:29 Sodium 139 (136-145) mmol/L Potassium 3.5 (3.5-5.1) mmol/L Chloride 100 (98-107) mmol/L Carbon Dioxide 32 (21-32) mmol/L Anion Gap 7 (3-11) BUN 15 (6-23) mg/dl Creatinine 0.61 (0.6-1.2) mg/dl Est Cr Clr Drug Dosing 72.1 ml/min Est GFR ( Amer) 97.8 ml/min Est GFR (Non-Af Amer) 84.4 ml/min BUN/Creatinine Ratio 24.6 H (10-20) Glucose 171 H (70-99(Fasting)) mg/dl Calcium 9.2 (8.5-10.1) mg/dl Total Bilirubin 0.3 (0.2-1.0) mg/dl AST 24 (13-39) U/L ALT 21 (7-52) U/L Alkaline Phosphatase 63 (34-104) U/L Total Protein 6.9 (6.0-8.3) gm/dl Albumin 3.4 (3.4-5.0) gm/dl Globulin 3.5 (2.5-4.0) gm/dl Albumin/Globulin Ratio 1.0 (0.9-2) Microbiology 10/31/22 14:11 Gram Stain - Final Rectal Abscess Aerobic and Anaerobic Culture - Preliminary Staphylococcus aureus
--- NOTE | 2022-11-17 09:49 | Discharge Summary ---
Date of Service November 02, 2022 Admission HPI Per Admitting Provider Patient is an 82-year-old female with a past medical history of chronic back pain, hiatal hernia with GERD, chronic pain syndrome, insomnia, hypertension, and hyperlipidemia who presents to the hospital for evaluation of right gluteal infection. She reports that she has swelling in her right glutes that started a few days ago for which she saw her family doctor. She was initially started on a course of Bactrim. It seems the swelling in tenderness progressively gotten worse over the past couple of days and today she was instructed to go to the emergency department by her primary care provider. Patient reports exuberant amounts of pain which prompted her to discuss her care further with her primary care provider. Of note she does report that when she initially saw her primary care provider there was a mobile, painful mass but she did have blood over the swollen area for the past couple of days. Patient otherwise has no systemic symptoms. No fever, chills, chest pain, nausea, vomiting, shortness of breath or chest pain. No other complaints at this time. ED course: Patient was brought to the emergency department for evaluation of her infection. While she was here she was seen by one of our ED providers who ordered lab work and imaging. Lab work was positive for a white count of 13.38 but otherwise lab results were within normal limits. A CT scan of her pelvis revealed diffuse edema and inflammation without any localized collection of fluid indicating an abscess. For the extent of the infection, the hospital service was consulted for further treatment and evaluation. Principal Diagnosis cellulitis of glueteal region Discharge Exam Constitutional: WD/WN, vitals as above Eyes: + anicteric sclerae Neck: trachea midline, no thyromegaly Respiratory: normal respiratory effort, lungs clear to auscultation Cardiovascular: RRR, no murmur, no edema Gastrointestinal (Abdomen): normal bowel sounds, soft, nontender, no hepatosplenomegaly Musculoskeletal: Head/Neck/Chest: normocephalic and head atraumatic Skin: dry dressing noted Neurologic: moves all extremities Psychiatric: A+Ox3, euthymic affect Lymphatic: no cervical lymphadenopathy Discharge Data Allergies Allergy/AdvReac Type Severity Reaction Status Date / Time trazodone AdvReac Intermediate Inflammation Verified 09/22/22 10:43 of the sinuses and tachycardia. Consultations 10/27/22 22:13 ED Decision to Admit Stat 10/30/22 09:58 Consult General Surgery Routine Procedures Performed Operation Date: 10/31/22 07:00 Actual Procedures p Perirectal Abscess(Not Applicable) - Franck Yates MD Ordered Studies 10/27/22 18:59 CT pelvis w/IV con only Stat Hospital Course (1) Cellulitis of gluteal region: Patient is an 82-year-old female with a past medical history of chronic back pain, hiatal hernia with GERD, chronic pain syndrome, insomnia, hypertension, and hyperlipidemia who presents to the hospital for evaluation of right gluteal infection. There is no notable abscess per my evaluation and imaging. She has been started on IV antibiotics and received a one-time dose of Zosyn and has now been started on Unasyn and daptomycin. Patient is hemodynamically stable and comfortable. -Admit to [facility] -Infection seems to have gotten worse on Bactrim -Started Unasyn and daptomycin for broad-spectrum coverage given area of infection -White count currently at 13.38 -Lactated Ringer's at 80 cc/h -Patient is hemodynamically stable -Daily CBC and BMP -Given that there is no notable abscess, no surgical consult at this time -No SIRS criteria, no blood cultures needed at this time -If good resolution/improvement tomorrow, consider de-escalating antibiotics. Mild resolution of erythema, will place on warm compresses. Area of induration may evolve into an abscess, will consider discussion with gen surgery. For now will continue antibiotics as above as this appears to be helping. s/p I AND D ON 10/31 Appreciate input from Gen Surgery: Will need daily wound packing changes. To keep laci drain in and follow-up with Dr. Yates in 1-2 weeks. Will need to follow-up with wound care center for wound care Continue pain management as needed will need bowel regimen to prevent constipation or straining continue Antibiotics, can transition to oral bactrim on discharge for 10 days Okay from surgery standpoint for discharge (2) Back pain: -Chronic issue, typically on oxycodone through pain management in outpatient setting (3) Hiatal hernia with GERD: -continue Protonix (4) Pain syndrome, chronic: -See back pain above (5) Hypertension: -Continue amlodipine, lisinopril, hydrochlorothiazide (6) Hyperlipidemia: -Statin Total Time Total Time Spent Total Time Spent (In Minutes): 35 Discharge Plan Discharge Items Patient Disposition: Home - Home Health Services Reason For Visit: GLUTEAL INFECTION Discharge Diagnosis: gluteal infection Activity: Resume your previous activity Non-emergency contact: Primary Care Provider Call non-emergency contact if: you have any medication questions Follow-up/Referrals: Donaldo Barajas MD [Primary Care Provider] - 11/04/22 3:00 pm Diet: Regular Addtl Attending Provider Instructions: Will need daily wound packing changes. To keep laci drain in and follow-up with Dr. Yates in 1-2 weeks. Will need to follow-up with wound care center for wound care Continue pain management as needed continue Antibiotics: oral bactrim on discharge for 10 days Please monitor acetaminophen (tylenol) intake as your narcotics have acetaminophen. Do no take more than 3 grams, preferably less than 2500 mg a day. Addtl Technical Business Analyst Provider Instructions: ACTIVITY RECOMMENDATIONS: * No heavy lifting for 2 weeks. MEDICATIONS: Resume previous medications unless instructed otherwise by your surgeon. * Percocet 5/325 mg 1 every 4 hours, as needed for pain * Colace 100 mg 2 times per day. Avoid constipation or straining. Drink plenty of water daily. May take Miralax as needed . Stop Miralax if you start having loose stools. Increase fiber in your diet. * Extra Strength Tylenol 500 - 1000 mg every 4 hours, as needed for pain * Ibuprofen 600 mg every 6 hours, as needed for pain SPECIAL CARE INSTRUCTIONS: * Change outer dressings as needed to keep clean and dry and at least once a day * Shower or sitz bath 2 times per day and after each bowel movement. * you will need follow-up in wound clinic for daily to every other day for packing changes * Surgical drain that is placed into wound will stay and be removed in surgery office. If the drain falls out on its own please call the office to let us know. The drain is secured to your skin with a stitch. * Call the surgeon's office with any questions or concerns - (ex. temperature higher than 101 degrees F, excessive bleeding or pain). FOLLOW UP VISIT: If not already scheduled, please call the office to schedule a one-two week follow-up appointment with Dr. Yates. Office number . Pending Studies at Discharge: No Stand-Alone Forms: My [facility], Smoking Cessation Medications and DC Order Prescriptions: New acetaminophen 325 mg Tablet 650 mg PO Q6H PRN (Reason: pain) Qty: 30 0RF Continued estradiol 0.5 mg tablet 0.5 mg PO QAM Qty: 90 3RF multivitamin Tablet 1 tab PO QAM ascorbic acid (vitamin C) 500 mg tablet 1 g PO QAM zinc 50 mg tablet 50 mg PO QAM cholecalciferol (vitamin D3) 125 mcg (5,000 unit) capsule 125 mcg PO QAM hydrocodone-acetaminophen 10-300 mg Tablet 1 tab PO Q4H PRN (Reason: chronic pain) atorvastatin 40 mg tablet 40 mg PO QAM amlodipine 5 mg tablet 5 mg PO QAM pantoprazole 40 mg tablet,delayed release (DR/EC) 40 mg PO QAM lisinopril-hydrochlorothiazide 20-25 mg tablet 1 tab PO QAM Rx Instructions: TAKE 1 TABLET BY MOUTH EVERY DAY sulfamethoxazole-trimethoprim [Bactrim DS] 800-160 mg tablet 1 tab PO BID 10 Days Qty: 20 0RF No Action iqwizvyjuy-xqboalumnqyhv-nlfb 50-325-40 mg tablet 1 tab PO .COMPLEX PRN (Reason: migraine headache) Qty: 10 0RF Rx Instructions: 1 tab PO every 8 hr . not to exceed 4 per week PRN; Discharge Orders: Discharge Order (Routine); Ordered 11/02/22 Ordered By: Jake Snider Admission Data Admit Date/Time: 10/29/22 06:44 Attending Provider: Jake Snider Admit Provider: Shayan Zaragoza Primary Care Provider: Donaldo Barajas Other Providers: Helena Carney ; [facility] ; Elias Reyes ; Shayan Zaragoza ; Franck Yates Other Interventions: Discharge Summary Assessment (RN) Last Done: 11/02/22 14:54 Coding Level of Care Code D/C DAY MANAGEMENT >30 MINS Diagnoses Cellulitis of gluteal region L03.317 Back pain M54.9 Hiatal hernia with GERD K21.9; K44.9 Pain syndrome, chronic G89.4 Hypertension I10 Hypertension type: essential hypertension Hyperlipidemia E78.5
== END 2022-11-02 16:12 | disposition home health service (06) | DRG 394 ==
LOC: ED 14:29 → 3N 14:29 → SUATTDRO 22:59 → 3N 10-28 00:53